=== PATIENT | female | born 1985 | race Caucasian/White ===

== ENCOUNTER 2020-10-07 17:05 | Emergency (ER) | payer OTHER, SELFPAY ==
--- NOTE | ~2020-10-07 | XR_ITS ---
XR chest 2V DATE: 10/07/2020 17:45 INDICATION: Chest tightness TECHNIQUE: PA and lateral views COMPARISON: 06/13/2016 2 view chest FINDINGS: Normal heart size. No hilar or mediastinal enlargement. No pulmonary infiltrate or consol idation, pulmonary vascular congestion or pleural effusion or pneumothorax. Pectus excavatum. There is thoracolumbar scoliosis. IMPRESSION: No active cardiopulmonary disease Reviewed, dictated and finalized at location A.
[2020-10-07 17:16] VITALS: BP 136/89; PULSE 82; RESP 16; TEMP 37.1; O2SAT 100
--- NOTE | 2020-10-07 17:44 | ED.GENADULT ---
HPI - General Adult General Chief complaint: Upper Respiratory Infection Stated complaint: CHEST TIGHTNESS Source: patient and RN notes reviewed Limitations: no limitations History of Present Illness HPI narrative: The patient, non-smoker/nondrinker presents with left breast pain. Patient states she has a shorter, couple day history of crampy left inframammary chest pain that lasts up to a minute. 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 No radiation, fever, cough, calf pain/edema, S OB, sneezing/wheezing, loss of taste/smell. She is on minimal meds as needed buspirone for anxiety. No med/risk factors for HLD, AODM, HTN [on beta tariq for history of anxiety]; and a couple years ago she had noncontributory mammogram and borderline EKG [NSR with IC RBBB,poss LAE] , no CXR. Related Data Home Medications Medication Instructions Recorded Confirmed atenolol 10/07/20 norethindrone-e.estradiol-iron tablet 10/07/20 [Blisovi Fe 03/04 (28)] norethindrone-e.estradiol-iron [Lo tablet 10/07/20 Loestrin Fe] Allergies Allergy/AdvReac Type Severity Reaction Status Date / Time codeine Allergy Unknown Verified 03/24/16 13:49 Review of Systems Review of Systems: Based upon ROS doubt patient has significant risk for cardiac, vascular/thrombotic nor pulmonary causes. General/Constitutional: No weight loss,fever Eyes: N0: Redness,discharge Ears/Nose/Throat: No: Epistaxis,ear discharge Respiratory: Denies: Hemoptysis Gastrointestinal: No Vomiting, Bleeding-rectal Skin: No Lumps, eruption Neurologic: No Focal Weakness,Sz Hematologic: Denies: Petechiae/Purpura Psychiatric: No: Suicida ideationl All Other Systems: Reviewed and Negative [facility] Family History Family History (Updated 03/24/16 @ 13:52 by DOCTOR UNKNOWN) Grandparent Diabetes mellitus Hypertension Malignant neoplasm of prostate Family history of coronary artery disease Mother Diabetes mellitus Father Hypertension Other Family history of cardiovascular disease Social History Social History Smoking status: Never smoker Alcohol intake: current Comments At time of signature, agree with nursing past medical, surgical, social and family history. There is no relevant family history pertinent to the presenting complaint Exam Narrative: General Appearance: Well appearing, No distress EYE: PERRLA, Conjunctiva clear Ears: External ear normal Nose: Normal nose Mouth/Throat: Normal appearing, Normal lips Neck: Supple Respiratory: Airway patent, No respiratory distress, chest wall nontender Cardiovascular: RRR Abdomen: Soft, Non-tender, Musculoskeletal: Full ROM Skin: Warm, Dry Neurological: A&O x3, CN II-X intact Psychiatric: Normal mood, Normal affect Course Course Emergency Course: Films visualized, interpreted by radiologist, agree, normal see report Vital Signs Vital signs: Vital Signs Temperature 98.7 F 10/07/20 17:16 Pulse Rate 82 10/07/20 17:16 Respiratory Rate 16 10/07/20 17:16 Blood Pressure 136/89 10/07/20 17:16 Pulse Oximetry 100 10/07/20 17:16 Temperature 98.7 F 10/07/20 17:16 Pulse Rate 82 10/07/20 17:16 Respiratory Rate 16 10/07/20 17:16 Blood Pressure 136/89 10/07/20 17:16 Pulse Oximetry 100 10/07/20 17:16 Medical Decision Making Vital Signs Vital Signs: Vital Signs Temperature 98.7 F 10/07/20 17:16 Pulse Rate 82 10/07/20 17:16 Respiratory Rate 16 10/07/20 17:16 Blood Pressure 136/89 10/07/20 17:16 Pulse Oximetry 100 10/07/20 17:16 Temperature 98.7 F 10/07/20 17:16 Pulse Rate 82 10/07/20 17:16 Respiratory Rate 16 10/07/20 17:16 Blood Pressure 136/89 10/07/20 17:16 Pulse Oximetry 100 10/07/20 17:16 Lab Data Labs: Lab Results 10/07/20 Range/Units 17:15 POC SARS CoV-2 Ag Negative (Negative)
== END 2020-10-07 18:15 | disposition home or self-care (01) ==
PROVIDERS: Emergency Provider Emergency Medicine; PCP Internal Medicine
DX: N64.4 Mastodynia (principal); Z20.822 Contact with and (suspected) exposure to COVID-19; F41.9 Anxiety disorder, unspecified
CPT/HCPCS: 71046; 87426; 99213; C9803; G0463

== ENCOUNTER → 2021-04-07 09:38 | Outpatient (CLI) | payer OTHER, SELFPAY ==
--- NOTE | ~2021-04-07 | MMUS_ITS ---
EXAMINATION: MM diagnostic parisa BI w aurelio, US breast BI complete HISTORY: Left breast lump, upper outer quadrant TECHNIQUE: ML, MLO and CC full field and spot 3-D tomosynthesis images of both breasts were performed and synthetic 2-D images were generated. Bilateral rotated lateral CC views. CAD analysis was submit anita and interpreted. High resolution complete bilateral breast ultrasound including all 4 quadrants a nd subareolar areas was performed. COMPARISON: 01/27/2016 bilateral diagnostic mammogram BREAST PARENCHYMAL COMPOSITION: The breasts are extremely dense, which lowers the sensitivity of mamm ography. FINDINGS: MAMMOGRAPHIC FINDINGS: No reproducible mass or architectural distortion is evident. No malignant calcification, skin thicken ing or retraction. The dense stroma may obscure masses. For this reason, bilateral complete breast ultrasound examinatio n was performed. ULTRASOUND: There is no evidence of suspicious mass or shadowing of either breast. IMPRESSION: 1. No mammographic evidence of malignancy 2. Routine annual mammographic screening is recommended. BI-RADS Category 1: Negative Negative mammogram and ultrasound examination do not definitively exclude malignancy. Further evaluat ion of any suspicious palpable abnormality may be indicated as clinically appropriate. Reviewed, dictated and finalized at location A. STANT HEALTH EDUCATOR IMPRESSION: 1. No mammographic evidence of malignancy 2. Routine annual mammographic screening is recommended. BI-RADS Category 1: Negative Negative mammogram and ultrasound examination do not definitively exclude malig anamaria. Further evaluation of any suspicious palpable abnormality may be indicat ed as clinically appropriate.
== END ==
PROVIDERS: Visit Provider Nurse Practitioner
DX: N63.20 Unspecified lump in the left breast, unspecified quadrant (principal)
CPT/HCPCS: 76641; 77062; 77066; G0279

== ENCOUNTER 2021-08-01 09:11 | Emergency (ER) | payer OTHER, SELFPAY ==
--- NOTE | ~2021-08-01 | XR_ITS ---
XR finger 2nd RT min 2V DATE: 08/01/2021 09:26 INDICATION: Pop/pain while scrubbing. Flexion deformity at the DIP joint. TECHNIQUE: 4 views of second digit COMPARISON: None FINDINGS: No fracture or dislocation, periosteal reaction or bone destruction, radiopaque soft tissue foreign body or subcutaneous emphysema. Joint spaces are preserved. IMPRESSION: No fracture or dislocation Reviewed, dictated and finalized at location A. IMPRESSION: No fracture or dislocation
--- NOTE | 2021-08-01 09:14 | ED.UPPEXIN ---
HPI - Extremity Injury (Upper) General Chief Complaint: Extremity Injury, Upper Stated Complaint: Right hand finger injury Time Seen by Provider: 08/01/21 09:14 Source: patient and RN notes reviewed History of Present Illness HPI narrative: Patient is a 36-year-old female who presents the urgent care with complaints of right index finger pain. Patient states that on Monday she was scrubbing her karma after her child spilled ice cream and her the tip of her finger snap. Patient states she is unable to straighten the tip. Patient has been taking Advil for the pain. States it is not painful to touch, only to squeeze. Patient is right-hand dominant. No other acute complaints. No acute distress noted. Patient read the plan of care. Some parts of this dictation were generated by voice recognition software and may contain typographical and/or grammatical inaccuracies. Related Data Home Medications Medication Instructions Recorded Confirmed atenolol 50 mg tablet 10/07/20 norethindrone 1 mg-ethinyl tablet 10/07/20 estradiol 20 mcg (21)-iron 75 mg (7) tablet (Blisovi Fe 03/04 (28)) escitalopram oxalate 10 mg tablet tablet 08/01/21 Allergies Allergy/AdvReac Type Severity Reaction Status Date / Time codeine Allergy Unknown Unknown Verified 08/01/21 09:16 Review of Systems Review of Systems: CONSTITUTIONAL: Denies fever, chills, or sweats. EYES: Denies visual changes, redness, or discharge. ENT: Denies rhinorrhea, congestion, sore throat, or otalgia. CARDIOVASCULAR: Denies chest pain, palpitations, or edema. RESPIRATORY: Denies cough or dyspnea. GASTROINTESTINAL: Denies abdominal pain, nausea, vomiting, or diarrhea. GENITOURINARY: Denies dysuria or hematuria. SKIN: Denies rash or itching. MUSCULOSKELETAL: Reports of right index finger pain NEUROLOGIC: Denies headache, numbness, or weakness. All other systems reviewed are negative, except as documented in HPI. [facility] Family History Family History (Updated 03/24/16 @ 13:52 by DOCTOR UNKNOWN) Grandparent Diabetes mellitus Hypertension Malignant neoplasm of prostate Family history of coronary artery disease Mother Diabetes mellitus Father Hypertension Other Family history of cardiovascular disease Social History Social History Smoking status: Never smoker Alcohol intake: current Comments At the time of my signature, I reviewed and agree with the nursing past medical, surgical, social, and family history. There is no relevant family history pertinent to the patient complaint. Exam Narrative: GENERAL: This is a well-nourished, well-developed patient, in no apparent distress. HEAD: normocephalic, atraumatic. EYES: PERRL. Sclera clear/white. Vision is grossly intact. EARS: External ears normal NOSE: External nose normal with no obvious nasal discharge, nares without redness, no rhinorrhea. THROAT: Mucous membranes moist NECK: Neck supple CARDIOVASCULAR: Regular rate and rhythm without murmurs, gallops, or rubs. RESPIRATORY: Clear to auscultation. Breath sounds equal bilaterally. No wheezes, rales, or rhonchi. SKIN: warm, intact with no suspicious lesions or rash, good texture and turgor. NEURO: awake, alert, and oriented to person, place and time. There were no obvious focal neurologic abnormalities. EXTREMITIES: Obvious tendon rupture to the DIP of the right index finger, with mild surrounding edema. Range of motion right upper extremity within normal limits with positive strong right radial pulse and capillary refill less than 2 seconds. Course Course Level of Care: Express Care Visit Vital Signs Vital signs: Vital Signs Temperature 99.1 F 08/01/21 09:16 Pulse Rate 63 08/01/21 09:16 Respiratory Rate 16 08/01/21 09:16 Blood Pressure 114/77 08/01/21 09:16 Pulse Oximetry 100 08/01/21 09:16 Oxygen Delivery Room Air 08/01/21 09:16 Temperature 99.1 F 08/01/21 09:16 Pulse Rate 63 08/01/21 09:16 Respiratory
[2021-08-01 09:16] VITALS: BP 114/77; PULSE 63; RESP 16; TEMP 37.3; O2SAT 100
== END 2021-08-01 09:48 | disposition home or self-care (01) ==
PROVIDERS: Emergency Provider Nurse Practitioner Family; PCP Family Medicine
DX: S69.92XA Unspecified injury of left wrist, hand and finger(s), initial encounter (principal); X50.3XXA Overexertion from repetitive movements, initial encounter; F41.9 Anxiety disorder, unspecified
CPT/HCPCS: 29130; 73140; 99213; G0463

== ENCOUNTER 2023-10-05 13:27 | Outpatient (CLI) | payer OTHER, SELFPAY ==
--- NOTE | ~2023-10-05 | MM_ITS ---
EXAMINATION: MM screening parisa BI w aurelio HISTORY: Screening TECHNIQUE: Craniocaudal and mediolateral oblique 3-D tomosynthesis images were obtained and synthetic 2-D images were generated. CAD analysis was submitted and interpreted. COMPARISON: Comparison to multiple prior studies sequentially, with oldest reviewed study dated 01/13. BREAST PARENCHYMAL COMPOSITION: Dense: The breasts are heterogeneously dense, which may obscure small masses FINDINGS: There is no evidence of suspicious mass, calcification, or architectural distortion to sugg est malignancy in either breast. There has been no suspicious interval change. IMPRESSION: 1. No mammographic evidence of malignancy. 2. Recommend routine screening mammography in one year. BI-RADS Category 1: Negative Reviewed, dictated and finalized at location B.
== END 2023-10-05 13:28 ==
PROVIDERS: PCP Obstetrics & Gynecology Gynecology; Visit Provider Obstetrics & Gynecology Gynecology
DX: Z12.31 Encounter for screening mammogram for malignant neoplasm of breast (principal)
CPT/HCPCS: 77063; 77067

== ENCOUNTER 2024-08-25 09:39 | Emergency (ER) | payer OTHER, SELFPAY ==
--- NOTE | ~2024-08-25 | CT_ITS ---
Non-contrast Head CT History: Head injury, headache Technique: Axial non-contrast imaging of the brain was performed. Dose reduction technique was used on this scan by utilizing automated exposure control and iterative reconstruction technique. The dose -length product (DLP) was 605.33 mGy-cm. Findings: There is no evidence of intracranial hemorrhage, mass lesion, or acute infarct. Brain par enchyma appears normal. The ventricles and subarachnoid spaces are normal in size. The calvarium ap pears normal. The visualized paranasal sinuses and mastoid air cells are clear. Impression: No significant abnormality seen. Reviewed, dictated and finalized at location . Impression: No significant abnormality seen.
[2024-08-25 09:40] VITALS: BP 154/95; PULSE 89; RESP 16; TEMP 37; O2SAT 94
--- OUTSIDE RECORDS SUMMARY | 2024-08-25 09:41 | XMS_ITS | Clinical Summary ---
Author Organization [facility] Address [address] [place] [address] Phone Care Team Providers Care Locksmith Name Role Phone Unavailable Primary Care Provider Unavailabl e Social History Tobacco Use Types Packs/Day Years Used Date Smoking Tobacco: Never Assessed Comments Unknown Sex and Gender Information Value Date Recorded Sex Assigned at Not on file Legal Sex Female 4:46 PM CDT Gender Identity Not on file Sexual Orientation Not on file Plan of Treatment Health Maintenance Due Date Last Done Comments DTAP/TDAP/TD VACCINES (1 - Tdap) 01/17/2003 HEPATITIS B VACCINES (1 of 3 - 19+ 3-dose series) 01/17/2003 HPV/Cotest (21-29) 01/17/2005 CERVICAL CANCER SCREENING 01/17/2014 HPV/Cotest (30-65) 01/17/2014 PAP SMEAR 01/17/2014 BREAST CANCER SCREENING 2024 INFLUENZA VACCINE (#1) 2024 HPV VACCINES Aged Out No longer eligi ble based on patient's age to complete this topic Insurance [facility] [id number]
--- OUTSIDE RECORDS SUMMARY | 2024-08-25 09:41 | XMS_ITS | Referral Summary ---
Author Organization [facility] Address [address] [place] [address] Care Team Providers Care Optical Goods Worker Name Role Phone Shawn Lugo MD Primary Care Provider [phone] Kamala Gordon MD Unavailable [phone] Allergies Active Allergy Reactions Criticality Noted Date Comments Codeine Rash,Redness,Itching Low 08/15/2013 Reaction: rash, redness, Patient tolerated hydromorphone (Diluadid) with no adverse effect August 2013 Medications multivit-mineral s/folic acid (MULTIVITAMIN GUMMIES ORAL) Take by mouth Active Blisovi Fe 03/04, 28, 1 mg-20 mcg (21)/75 mg (7) per tablet 08/27/2021 Active escitalopram (LEXAPRO) 10 mg tabletIndication s:Generalized anxiety disorder TAKE 1 TABLET DAILY 90 tablet 3 02/13/2024 Active Active Problems Problem Noted Date Diagnosed Date Well adult exam 12/12/2020 Assessment & Plan (09/14/2023 8:20 AM CDT): A(n) yearly well adult visit has been performed today. Kwesi Plata is not up to date on screening tests. He is in need of hep B, C and Cholesterol screening. She is not up to date on needed preventative vaccinations; She is in need of Tdap/Td. We discussed healthy lifestyle habits, educational material has been given. Medications reviewed, changes documented as per the medical record and discussed with patient along with risks vs benefits. Return in 1 year Assessment & Plan (09/13/2022 8:48 AM CDT): A(n) yearly well adult visit has been performed today. Kwesi Plata is up to date on screening tests. She is in need of None- no screening indicated at this time. She is not up to date on needed preventative vaccinations. We discussed healthy lifestyle habits, educational material has been given. Medications reviewed, changes documented as per the medical record and discussed with patient along with risks vs benefits. Return in 1 year Assessment & Plan (12/12/2020 7:19 PM CDT): A visit to establish care has been performed today. Kwesi Plata is up to date on screening tests. She is in need of None- no screening indicated at this time- these have been ordered. She is up to date on needed preventative vaccinations. Generalized anxiety disorder 12/10/2020 Occipital mass 04/20/2018 Assessment & Plan (04/20/2018 10:12 AM BUSINESS TAXES SPECIALIST): Lymphadenopathy verses cyst. Advised Pt does not appear to have any correlation with her neck strain unless a ganglion cyst of some sort. In moving forward I did advise her we can check a CBC, D/T her concerns of it to be cancer, and consultation to ENT for further evaluation to which they can make a decision to determine need for ultrasonography, antibiotics, etc. Preventative health care 08/29/2016 , twins, antepartum 08/15/2013 Overview (12/10/2020): Last Assessment & Plan: Baby A: AEDF and Baby B: 2VC Plan for C/S Palpitations 12/19/2011 Overview (05/18/2016): Palpitations Essential hypertension 12/19/2011 Overview (05/20/2016): HTN (hypertension) Resolved Problems Problem Noted Date Diagnosed Date Resolved Date Lymph node enlargement 04/25/201808/31 Assessment & Plan (04/25/2018 2:09 PM CDT): Observation if it grows to twice its current size please call office Warm compresses to left neck and shoulder for 15 minutes at a time Neck strain 04/20/2018 08/31/2018 Assessment & Plan (04/20/2018 10:12 AM BUSINESS TAXES SPECIALIST): Recommended naproxen 1 tab with food twice daily for the next 1-2 weeks, Zanaflex caution of sedation p.r.n., application of heat stretching exercises, C-spine x- ray ordered considering longevity of neck pain which will follow-up in regard to. I did discuss physical therapy she declined at this time I gave her instructions she was exercises to implemented home. RTC in 2 weeks with little improvement sx Iron deficiency anemia eliezer latham to inadequate dietary iron intake 08/29/2016 8 Immunizations Immunization Administration Dates Next Due Influenza, Quadrivalent, Freda l Culture-based MDCK, Preservative Free, Antibiotic Free, Intramuscular 11/16/2019 Influenza, Quadrivalent, Spl it, Intramuscular 01/25/2019 Influenza, Quadrivalent, Spl it, Preservative Free, Intramuscular 12/10/2020,01/25/2019 Influenza, Split 12/31/2009 Influenza, Unspecified 09/13/2022(Deferr ed: Patient Refused),02/13/2022(Deferred: Patient Refused),02/13/2021(Deferred: Patient Refused) MMR 09/19/2009 Moderna SARS-CoV-2 Monovalen t Vaccination (12+ YRS) 02/25/2021,05/04/2020,04/02/2020 Tdap 09/14/2023,07/15/2013,09/14/2009 Social History Tobacco Use Types Packs/Day Years Used Date Smoking Tobacco: Never Cigarettes Smokeless Tobacco: Never Tobacco Cessation:Counseling Given: Not Answered Alcohol Use Standard Drinks/Week Comments Yes 0 (1 standard drink = 0.6 oz pur e alcohol) occasionally AUDIT-C Answer Date Recorded Q1: How often do you have a drink containing alc ohol? Monthly or less 12/10/2020 Q2: How many drinks containi ng alcohol do you have on a typical day when you are drinking? 1 or 2 12/10/2020 Q3: How often do you have si x or more drinks on one occasion? Never 12/10/2020 PHQ-2 Answer Date Recorded PHQ-2 Total Score (If total score is 3 or more points, staff should administer the PHQ-9) 0 09/14/2023 Exercise Vital Sign Answer Date Recorde d On average, how many days pe r week do you engage in moderate to strenuous exercise (like a brisk walk)? 0 days Minutes of Exercise per Session Not on file 12/10/2020 Education Answer Date Recorded What is the highest level of school you have completed or the highest degree you have received? 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 on file Not on file Last Filed Vital Signs Vital Sign Reading Time Taken Comments Blood Pressure 100/60 09/14/2023 8:11 AM CDT Pulse 71 09/14/2023 8:11 AM CDT Temperature 36.2 C (97.1 F) 09/14/2023 8:11 AM CDT Respiratory Rate 14 09/14/2023 8:11 AM CDT Oxygen Saturation 98% 09/14/2023 8:11 AM CDT Inhaled Oxygen Concentration - - Weight 79.8 kg (176 lb) 10/12/2023 4:02 PM CDT Height 162.6 cm (5' 4) 10/12/2023 4:02 PM CDT Body Mass Index 30.21 10/12/2023 4:02 PM CDT Plan of Treatment Not on file Procedures Procedure Name Priority Date/Time Associated Diagnosis Comments HEPATITIS C ANTIBODY Routine 09/14/2023 8:34 AM CDT Need for hepatitis C screening test HM PAP SMEAR WITH HPV Routine 02/04/2020 from Last 3 Months or Most Recently Relevant to Health Maintenance Results * Hepatitis C antibody Blood (09/14/2023 8:34 AM CDT) Hep C Ab Nonreactive Nonreactive Comment: Interpretive Data Nonreactive: Antibodies to HCV not detected. Does NOT exclude the possibility of recent exposure to HCV. Equivocal: Equivocal for HCV antibodies. Supplemental molecular testing will be automatically performed to determine infection status in accordance with current CDC screening recommendations. Reactive: Positive for HCV antibodies. This may represent current or past HCV infection. Supplemental molecular testing will be automatically performed to determine current infection status in accordance with current CDC screening recommendations. Interpretive data was last revised on 2019. Blood 09/14/2023 8:34 AM CDT 09/14/2023 3:22 PM CDT Shawn Lugo MD LAB MICROBIOLOGY - GENERAL ORDERABLES Final Result Performing Organization Address City/State/ZIP [place] Phone Number [place] [phone] [facility] Department of Laboratories [place], [place] [id number] * PAP SMEAR WITH HPV (02/04/2020) Historical Provider HEALTH MAINTENANCE Final Result from Last 3 Months or Most Recently Relevant to Health Maintenance Insurance [facility] CHO[facility] PLUS [facility] PLUS [facility] PLUS Care Teams Optical Goods Worker Relationship Specialty Start Date End Date Shawn Lugo MD PCP - General Family Medicine 12/10/20 Kamala Gordon MD [address] [address] Referring Physician Gynecology 09/13/21
--- OUTSIDE RECORDS SUMMARY | 2024-08-25 09:41 | XMS_ITS | Clinical Summary ---
Author Organization [facility] Address [address] [place] [address] Care Team Providers Care Inspector Golf Ball Name Role Phone Shawn Lugo MD Primary Care Provider [phone] Kamala Gordon MD Unavailable [phone] Allergies Active Allergy Reactions Criticality Noted Date [...] 04/20/2018 Assessment & Plan (04/20/2018 10:12 AM MEDICAL OFFICE ADMINISTRATOR): Lymphadenopathy verses cyst. 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 Hx Other Medical r foot fx, surg dav Hypertension Generalized anxiety disorder 12/10/2020 Kidney stone Family History Medical History Relation Name Comments Hypertension Father Seven Chambers Hypertension ; Other Father Seven Chambers Alive and we ll; Diabetes Maternal Grandfather Oskar Ramírez Heart attack Maternal Grandfather Oskar Ramírez Myocard ial infarction; Alzheimer's disease Maternal Grandmother Natalia Ramírez Hypertension Maternal Grandmother Natalia Ramírez Hypert ension; Diabetes Mother Lorrei Chambers Diabetes destiny itus; Other Mother Lorrie Chambers Alive and wel l; Colon cancer Paternal Grandfather Cancer, colon; Hypertension Paternal Grandmother Nati Winters Relation Name Status Comments Father Seven Chambers Alive Maternal Grandfather Oskar Ramírez Alive Maternal Grandmother Natalia Ramírez Alive Mother Lorrie Chambers Alive Paternal Grandfather Alive Paternal Grandmother Nati Chambers Social History Tobacco Use Types Packs/Day Years [...] on file Legal Sex Female 12:40 PM MEDICAL OFFICE ADMINISTRATOR Gender Identity Female 12/09/2020 8:32 PM CDT Sexual Orientation Straight 12/09/2020 8: 32 PM CDT 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 on file Not on file Obstetrics History Last Filed Vital Signs Vital Sign Reading [...] 10/12/2023 4:02 PM CDT Plan of Treatment Health Maintenance Due Date Last Done Comments Breast Cancer Screening-Mammogram 1984 Covid-19 Vaccine ( season) 2023 02/25/2021, 05/04/2020, 04/02/2020 Depression Screening 09/13/2024 09/14/2023, 09/13/2022, 09/13/2021, Additional history exists Regular Well Visit/Exam 18-64 09/13/2024 09/14/2023, 09/13/2022, 09/13/2021, Additional history exists Influenza Vaccine (Season Ended) 2024 12/10/2020, 11/16/2019, 01/25/2019, Additional history exists Cervical Cancer Screening 02/12/2025 02/04/2020 Po stponed from 02/03/2021 (Insurance / Financial) DTaP/Tdap/Td Vaccine (4 - Td or Tdap) 09/13/2033 09/14/2023, 07/15/2013, 09/14/2009 Hepatitis B Screening Completed 09/14/2023 Hepatitis C Screening Completed 09/14/2023 HPV Vaccines Aged Out No longer eligi ble based on patient's age to complete this topic Pneumococcal vaccine <65 Aged Out No longer eligible based on patient's age to complete this topic Varicella Vaccines Discontinued Procedures Procedure Name Priority Date/Time Associated Diagnosis [...] GENERAL ORDERABLES Final Result Performing Organization Address City/State/[facility] Phone Number HALIMA [address] Department [place] [address] * PAP SMEAR WITH HPV (02/04/2020) Rasheed Provider HEALTH MAINTENANCE Final Result from Last 3 Months or Most Recently Relevant to Health Maintenance Insurance [facility] PL[facility] Care Teams Inspector Golf Ball Relationship Specialty Start Date End Date Shawn Lugo MD PCP - General Family Medicine 12/10/20 Kamala Gordon MD [address] [place] [address] Referring Physician Gynecology 09/13/21
--- OUTSIDE RECORDS SUMMARY | 2024-08-25 09:41 | XMS_ITS | Clinical Summary ---
Author Organization [facility] Address [address] [place] [address] Care Team Providers Care Clerical Office Worker Name Role Phone Alexis Hopper MD Primary Care Provider Source Comments [facility],non-owned Affiliates and Associated Physician Practices is amultiple site organization consisting of ambulatory clinics and hospital sitesin [place], [place], [place] and [place]. This disclosure is being madepursuant to the Care Everywhere program and may not contain all information available regarding this patient. Last updated 17.[facility] Allergies Active Allergy Reactions Criticality Noted Date Comments Codeine Itching 08/15/2013 Patient tolerated hydromorphone (Diluadid) with no adverse effect August 2013 Medications * Be aware that medications may not be up to date on this document. Alwaysverify current medications with the patient. Vit-Fe Fumarate-FA ( VITAMIN) 28-0.8 MG tablet Take 1 Tab by mouth once daily Reported on 01/25/2016 Active calcium carbonate (CALTRATE) 600 MG tablet Take 1 Tab by mouth daily with food Reported on 01/25/2016 Active NIFEdipine CR 24hr (ADALAT CC) 30 MG tabletIndicatio ns:Hypertension Take 30 mg by mouth 2 times daily Reported on 01/25/2016 Reasons: High Blood Pressure Active labetalol (NORMODYNE; TRANDATE) 200 MG tablet Take 1 Tab by mouth 2 times daily. 180 Tab 3 4 Active Additional Information Patient not taking.Reported on 01/25/2016 oxyCODONE-aceta minophen (PERCOCET) 5-325 MG tablet Take 1 Tab by mouth every 6 hours as needed. 20 Tab 0 4 Active Additional Information Patient not taking.Reported on 01/25/2016 ibuprofen (MOTRIN) 600 MG tablet Take 1 Tab by mouth every 6 hours as needed for Pain. 60 Tab 1 4 Active docusate sodium 100 MG CAPS Take 100 mg by mouth 2 times daily as needed for Constipation. 60 Cap 1 4 Active Additional Information Patient not taking.Reported on 01/25/2016 labetalol (NORMODYNE; TRANDATE) 100 MG tabletIndicatio ns:Hypertension Take 2 Tabs by mouth 2 times daily. Indications: High Blood Pressure 60 Tab 1 4 Active Additional Information Patient not taking.Reported on 01/25/2016 ATENOLOL PO Active Active Problems Problem Noted Date Diagnosed Date , twins, antepartum 08/15/2013 Assessment & Plan (08/15/2013 5:02 PM CDT): Baby A: AEDF and Baby B: 2VC Plan for C/S Social History Tobacco Use Types Packs/Day Years Used Date Smoking Tobacco: Never Smokeless Tobacco: Never Alcohol Use Standard Drinks/Week Comments No 0 (1 standard drink = 0.6 oz pur e alcohol) Comments No Sex and Gender Information Value Date Recorded Sex Assigned at Not on file Legal Sex Female 2:15 PM CDT Gender Identity Not on file Sexual Orientation Not on file Last Filed Vital Signs Vital Sign Reading Time Taken Comments Blood Pressure 118/76 01/25/2016 4:03 PM HANDTOOLS REPAIRER Pulse 82 01/25/2016 4:03 PM HANDTOOLS REPAIRER Temperature 37.3 C (99.1 F) 01/25/2016 4:03 PM HANDTOOLS REPAIRER Respiratory Rate 16 01/25/2016 4:03 PM HANDTOOLS REPAIRER Oxygen Saturation 98% 01/25/2016 4:03 PM HANDTOOLS REPAIRER Inhaled Oxygen Concentration - - Weight 68 kg (150 lb) 01/25/2016 4:03 PM HANDTOOLS REPAIRER Height 162.6 cm (5' 4) 01/25/2016 4:03 PM HANDTOOLS REPAIRER Body Mass Index 25.75 01/25/2016 4:03 PM HANDTOOLS REPAIRER Plan of Treatment Health Maintenance Due Date Last Done Comments LIPID TESTING 1984 MAMMOGRAM 1984 HIV SCREENING 01/17/1999 HEPATITIS C SCREENING 01/13/2002 DTAP/TDAP/TD VACCINES (1 - Tdap) 01/17/2003 HEPATITIS B VACCINE (1 of 3 - 19+ 3-dose series) 01/17/2003 HPV VACCINE (1 - 3-dose SCDM series) 01/17/2011 COVID-19 VACCINE (1 - 2023-2 5 season) 2023 DEPRESSION SCREENING 02/14/2024 INFLUENZA VACCINE (#1) 2024 ZOSTER VACCINE (1 of 2) 01/17/2034 HIB VACCINE Aged Out No longer eligi ble based on patient's age to complete this topic MENINGOCOCCAL (Group B) VACC INE SHARED DECISION-MAKING Aged Out No longer eligibl e based on patient's age to complete this topic MENINGOCOCCAL GROUPS A/C/Y/W VACCINE Aged Out No longer eligible b ased on patient's age to complete this topic PNEUMOCOCCAL VACCINE Aged Out No long er eligible based on patient's age to complete this topic Insurance [facility] [place] [place] [address] Advance Directives * Full Code (Latest Code Status on File) Date Activated Date Inactivated Comments 08/15/2013 3:59 PM 08/19/2013 1:05 PM Care Teams Clerical Office Worker Relationship Specialty Start Date End Date Alexis Hopper MD [address] [place] [id number] PCP - General Internal Medicine 08/15/13
--- OUTSIDE RECORDS SUMMARY | 2024-08-25 09:41 | XMS_ITS | Continuity of Care Document ---
Author Organization [facility] Address [address] [place] [address] Phone Care Team Providers Care Automobile Rental Agent Name Role Phone Unavailable Unavailable Unavailable Advance Directives Directive Yes / No Effective Date File Name No Information Encounters Encounter Description Practice Location Reason(s) For Visit Diagnoses Date Provider Providers Copied on Encounter [facility], [address], [place], [place], [id number], [place] tel:[phone] [facility] No Information No Information Referring Provider: OTILIA Sifuentes, [address], [place], [address]. tel:[phone] Family History Family Member Type Diagnosis Age At Onset No Information Payers Payer name Insurance type Covered libertarian ID [facility]isonal([id number] [id number] Social History Type Description Quantity Date Captured Comments Sex Female Smoking Status No Information Chief Complaint And Reason For Visit No Information History Of Present Illness Encounter Date Complaint History Of Prese nt Illness No Information Instructions Date Instruction Additional Infor mation No Information Assessments Type Assessment Date No Information
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
[2024-08-25 11:00] VITALS: BP 147/96; PULSE 90; RESP 16; O2SAT 97
--- OUTSIDE RECORDS SUMMARY | 2024-08-25 11:05 | XMS_ITS | Continuity of Care Document ---
Author Organization [facility] Address [address] [place] [address] Phone Care Team Providers Care Medical Records Auditor Name Role Phone Unavailable Unavailable Unavailable Advance Directives Directive Yes / No Effective Date File Name No Information Encounters Encounter Description Practice Location Reason(s) For Visit Diagnoses Date Provider Providers Copied on Encounter [facility], [address], [place], [place], [id number], [place] tel:[phone] [facility] No Information No Information Referring Provider: OTILIA Sifuentes, [address], [place], [address]. tel:[phone] Family History Family Member Type Diagnosis Age At Onset No Information Payers Payer name Insurance type Covered constitution party ID [facility]iza tisonal([id number] CI [id number] Social History Type Description Quantity Date Captured Comments Sex Female Smoking Status No Information Chief Complaint And Reason For Visit No Information History Of Present Illness Encounter Date Complaint History Of Prese nt Illness No Information Instructions Date Instruction Additional Infor mation No Information Assessments Type Assessment Date No Information
--- OUTSIDE RECORDS SUMMARY | 2024-08-25 11:05 | XMS_ITS | Clinical Summary ---
Author Organization [facility] Address [address] [place] [phone] Phone Care Team Providers Care Director Internal Audit Name Role Phone Unavailable Primary Care Provider [...] patient's age to complete this topic Insurance [facility] [id number]
--- OUTSIDE RECORDS SUMMARY | 2024-08-25 11:06 | XMS_ITS | Clinical Summary ---
Author Organization [facility] Address [address] [place] [place] [address] Care Team Providers Care Nurse Emergency Room Name Role Phone Alexis Hopper MD Primary Care Provider Source Comments [facility],non-owned Affiliates and Associated Physician Practices is amultiple site organization consisting of ambulatory clinics and hospital sitesin [place], [place], [place] and [place]. This disclosure is being madepursuant to the Care Everywhere program and may not contain all information available regarding this patient. Last updated 17.[facility] Allergies Active Allergy Reactions Criticality Noted Date [...] Comments Blood Pressure 118/76 01/25/2016 4:03 PM RULING MACHINE FEEDER Pulse 82 01/25/2016 4:03 PM RULING MACHINE FEEDER Temperature 37.3 C (99.1 F) 01/25/2016 4:03 PM RULING MACHINE FEEDER Respiratory Rate 16 01/25/2016 4:03 PM RULING MACHINE FEEDER Oxygen Saturation 98% 01/25/2016 4:03 PM RULING MACHINE FEEDER Inhaled Oxygen Concentration - - Weight 68 kg (150 lb) 01/25/2016 4:03 PM RULING MACHINE FEEDER Height 162.6 cm (5' 4) 01/25/2016 4:03 PM RULING MACHINE FEEDER Body Mass Index 25.75 01/25/2016 4:03 PM RULING MACHINE FEEDER Plan of Treatment Health Maintenance Due Date [...] patient's age to complete this topic Insurance [facility] Advance Directives * Full Code (Latest Code Status on File) Date Activated Date Inactivated Comments 08/15/2013 3:59 PM 08/19/2013 1:05 PM Care Teams Nurse Emergency Room Relationship Specialty Start Date End Date Alexis Hopper MD [address] [place] [phone] PCP - General Internal Medicine 08/15/13
--- OUTSIDE RECORDS SUMMARY | 2024-08-25 11:06 | XMS_ITS | Clinical Summary ---
Author Organization [facility] Address [address] [place] [address] Care Team Providers Care Material Checker Name Role Phone Shawn Lugo MD Primary Care Provider [phone] Kamala Gordon MD Unavailable [phone] Allergies Active Allergy Reactions Criticality Noted Date [...] 04/20/2018 Assessment & Plan (04/20/2018 10:12 AM AGRICULTURE INSPECTOR): Lymphadenopathy verses cyst. 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 Hx Other Medical r foot fx, surg [...] Grandmother Natalia Ramírez Hypert ension; Diabetes Mother Lorrie Chambers Diabetes destiny itus; Other Mother Lorrie [...] on file Legal Sex Female 12:40 PM AGRICULTURE INSPECTOR Gender Identity Female 12/09/2020 8:32 PM CDT [...] GENERAL ORDERABLES Final Result Performing Organization Address City/State/[facility] Phone Number HALIMA [address] [address] Department [place] [address] * PAP SMEAR WITH HPV (02/04/2020) Rasheed Provider HEALTH MAINTENANCE Final Result from Last 3 Months or Most Recently Relevant to Health Maintenance Insurance [facility] PLUS [facility] PLUS Care Teams Material Checker Relationship Specialty Start Date End Date Shawn Lugo MD PCP - General Family Medicine 12/10/20 Kamala Gordon MD [address] [place] [address] Referring Physician Gynecology 09/13/21
--- OUTSIDE RECORDS SUMMARY | 2024-08-25 11:06 | XMS_ITS | Referral Summary ---
Author Organization [facility] Address [address] [place] [address] Care Team Providers Care Sheet Manager Name Role Phone Shawn Lugo MD Primary Care Provider [phone] Kamala Gordon MD Unavailable [phone] Allergies Active Allergy Reactions Criticality Noted Date [...] 04/20/2018 Assessment & Plan (04/20/2018 10:12 AM SHIP'S PILOT): Lymphadenopathy verses cyst. Advised Pt does not [...] 08/31/2018 Assessment & Plan (04/20/2018 10:12 AM SHIP'S PILOT): Recommended naproxen 1 tab with food twice [...] on file Legal Sex Female 12:40 PM SHIP'S PILOT Gender Identity Female 12/09/2020 8:32 PM CDT [...] Final Result Performing Organization Address City/State/[place] Phone Number HALIMA [address] [facility] Department of Laboratories [place], [place] [id number] * PAP SMEAR WITH HPV (02/04/2020) Historical Provider HEALTH MAINTENANCE Final Result from Last 3 Months or Most Recently Relevant to Health Maintenance Insurance [facility] PLUS [facility] PLUS [facility] PLUS Care Teams Sheet Manager Relationship Specialty Start Date End Date Shawn Lugo MD PCP - General Family Medicine 12/10/20 Kamala Gordon MD [address] [place] [address] Referring Physician Gynecology 09/13/21
== END 2024-08-25 11:05 | disposition home or self-care (01) ==
LOC: CHSED 11:04
PROVIDERS: Emergency Provider Emergency Medicine; PCP Family Medicine
DX: S06.0X0A Concussion without loss of consciousness, initial encounter (principal); W21.03XA Struck by baseball, initial encounter; Y93.64 Activity, baseball
CPT/HCPCS: 70450; 99284

== ENCOUNTER 2024-10-08 16:14 | Outpatient (CLI) | payer OTHER, SELFPAY ==
--- NOTE | ~2024-10-08 | MM_ITS ---
EXAMINATION: screening [facility] BI w aurelio INDICATION: Asymptomatic, referred for screening mammogram COMPARISON: 10/05/2023 through 01/27/2016 TECHNIQUE: Digital Breast Tomosynthesis CC, MLO views of Both breasts were obtained with computer-aided detection to assist in interpretation of the study. FINDINGS: The breasts are heterogeneously dense, which may obscure small masses. There is a superficial mass in the superior lateral left breast at anterior third. Elsewhere, there are no mammographic features of malignancy. IMPRESSION: 1. Left breast Mass. 2. No evidence of malignancy in the Right breast. RECOMMENDATION: Left breast ultrasound BI-RADS Category 0: Incomplete: Needs additional imaging evaluation. Reviewed, dictated and finalized at location B.
== END 2024-10-08 16:15 | disposition home or self-care (01) ==
LOC: MICIMG 16:15
PROVIDERS: PCP Obstetrics & Gynecology Gynecology; Visit Provider Obstetrics & Gynecology Gynecology
DX: Z12.31 Encounter for screening mammogram for malignant neoplasm of breast (principal)
CPT/HCPCS: 77063; 77067

== ENCOUNTER 2024-10-22 08:32 | Outpatient (CLI) | payer OTHER, SELFPAY ==
--- NOTE | ~2024-10-22 | MMUS_ITS ---
EXAMINATION: MM diagnostic parisa LT w aurelio, US breast LT limited INDICATION: 39-year old female; BI-RADS 0, callback to evaluate left breast mass. COMPARISON: 10/08/2024 TECHNIQUE: Digital breast tomosynthesis True lateral and spot compression of the LEFT breast were obtained with computer-aided detection to assist in interpretation of the study. MAMMOGRAM FINDINGS: The breasts are heterogeneously dense, which may obscure small masses. A superficial circumscribed mass persists in the upper outer left breast. LEFT BREAST ULTRASOUND FINDINGS: Targeted evaluation of the upper outer quadrant was completed. At 1:00, 1 cm from the nipple there is an irregular shaped hypoechoic mass, which correlates to the mammographic finding. IMPRESSION: Suspicious left breast mass at 1:00 location. Recommend biopsy under ultrasound guidance. RECOMMENDATION: Ultrasound-guided core biopsy of left breast mass at 1:00. BI-RADS 4, SUSPICIOUS Reviewed, dictated and finalized at location B. IMPRESSION: Suspicious left breast mass at 1:00 location. Recommend biopsy under ultrasound guidance. RECOMMENDATION: Ultrasound-guided core biopsy of left breast mass at 1:00. BI-RADS 4, SUSPICIOUS
--- OUTSIDE RECORDS SUMMARY | 2024-10-22 09:01 | XMS_ITS | Clinical Summary ---
Author Organization [facility] Address [address] [place] [address] Care Team Providers Care Roll Edge Machine Operator Name Role Phone Alexis Hopper MD Primary Care Provider Source Comments [facility],non-owned Affiliates and Associated Physician Practices is amultiple site organization consisting of ambulatory clinics and hospital sitesin [place], [place], [place] and [place]. This disclosure is being madepursuant to the Care Everywhere program and may not contain all information available regarding this patient. Last updated 17.[facility] Allergies Active Allergy Reactions Criticality Noted Date [...] Comments Blood Pressure 118/76 01/25/2016 4:03 PM SALES TRAINER Pulse 82 01/25/2016 4:03 PM SALES TRAINER Temperature 37.3 C (99.1 F) 01/25/2016 4:03 PM SALES TRAINER Respiratory Rate 16 01/25/2016 4:03 PM SALES TRAINER Oxygen Saturation 98% 01/25/2016 4:03 PM SALES TRAINER Inhaled Oxygen Concentration - - Weight 68 kg (150 lb) 01/25/2016 4:03 PM SALES TRAINER Height 162.6 cm (5' 4) 01/25/2016 4:03 PM SALES TRAINER Body Mass Index 25.75 01/25/2016 4:03 PM SALES TRAINER Plan of Treatment Health Maintenance Due Date Last Done Comments LIPID TESTING 1984 MAMMOGRAM 1984 HIV SCREENING 01/17/1999 HEPATITIS C SCREENING 01/13/2002 DTAP/TDAP/TD VACCINES (1 - Tdap) 01/17/2003 HEPATITIS B VACCINE (1 of 3 - 19+ 3-dose series) 01/17/2003 HPV VACCINE (1 - 3-dose SCDM series) 01/17/2011 DEPRESSION SCREENING 02/14/2024 COVID-19 VACCINE (1 - 4-2 5 season) 2024 INFLUENZA VACCINE (#1) 2024 ZOSTER VACCINE (1 [...] patient's age to complete this topic Insurance [facility] Advance Directives * Full Code (Latest Code Status on File) Date Activated Date Inactivated Comments 08/15/2013 3:59 PM 08/19/2013 1:05 PM Care Teams Roll Edge Machine Operator Relationship Specialty Start Date End Date Alexis Hopper MD [address] [place] [id number] PCP - General Internal Medicine 08/15/13
--- OUTSIDE RECORDS SUMMARY | 2024-10-22 09:01 | XMS_ITS | Clinical Summary ---
Author Organization [facility] Address [address] [place] [phone] Phone Care Team Providers Care Collet Gluer Name Role Phone Unavailable Primary Care Provider [...] (1 of 3 - 19+ 3-dose series) 06/2002 HPV/Cotest (21-29) 01/17/2005 HPV VACCINES (1 - 3-dose SCDM series) 01/17/2011 CERVICAL CANCER SCREENING 01/17/2014 HPV/Cotest (30-65) 01/17/2014 PAP SMEAR 01/17/2014 BREAST CANCER SCREENING 2024 INFLUENZA VACCINE (#1) 2024 Insurance [facility] PPO [id number]
--- OUTSIDE RECORDS SUMMARY | 2024-10-22 09:01 | XMS_ITS | Encounter Summary ---
Author Organization [facility] Address [address] [place] [address] Care Team Providers Care Police Chief Name Role Phone Shawn Lugo MD Primary Care Provider [phone] Kamala Gordon MD Unavailable [phone] Encounter Details Date Type Department Care Team (Late st Contact Info) Description 09/16/2024 Results Follow-Up [facility] Primary Care at [address] [phone] Shawn Lugo MD [address] [place] [phone] CBC with auto differential, Comprehensive metabolic panel, Lipid panel, Additional followed-up results: 2 Social History Tobacco Use Types Packs/Day Years Used Date Smoking Tobacco: Never Smokeless Tobacco: Never Alcohol Use Standard Drinks/Week Comments Yes 0 (1 standard drink = 0.6 oz pur e alcohol) occasionally AUDIT-C Answer Date Recorded Q1: How often do you have a drink containing alcohol? Never 09/16/2024 Q2: How many drinks containi ng alcohol do you have on a typical day when you are drinking? Patient does not drink Q3: How often do you have si x or more drinks on one occasion? 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 Never 09/16/2024 8:30 AM MIGUEL ÁNGELT Shawn Lugo MD Q2: How many drinks containing alcohol do you have on a typical day when you are drinking? Patient does not drink 09/16/2024 8:30 AM MIGUEL ÁNGELT Shawn Lugo MD Q3: How often do you have six or more drinks on one occasion? Never 09/16/2024 8:30 AM MIGUEL ÁNGELT Shawn Lugo MD documented as of this encounter Plan of Treatment Not on file documented as of this encounter Visit Diagnoses Not on filedocumented in this encounter Care Teams Police Chief Relationship Specialty Start Date End Date Shawn Lugo MD [address] [place] [address] PCP - General Family Medicine 12/10/20 Kamala Gordon MD [address] [place] [address] Referring Physician Gynecology 09/13/21 documented as of this encounter
--- OUTSIDE RECORDS SUMMARY | 2024-10-22 09:01 | XMS_ITS | Clinical Summary ---
Author Organization [facility] Address [address] [place] [address] Care Team Providers Care Medical Billing Specialist Name Role Phone Shawn Lugo MD Primary Care Provider [phone] Kamala Gordon MD Unavailable [phone] Allergies Active Allergy Reactions Criticality Noted Date [...] adult visit has been performed today. 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 Advised Pt does not [...] 08/31/2018 Assessment & Plan (04/20/2018 10:12 AM 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): Recommended naproxen 1 tab with food twice [...] with little improvement sx Iron deficiency anemia nahomion yeison to inadequate dietary iron intake 08/29/2016 8 Encounters Date Type Department Care Team Description 09/16/2024 8:50 AM CDT Lab [address] [address] Well adult exam; Screening, lipid; Screening for thyroid disorder 09/16/2024 8:00 AM CDT Office Visit [facility] Primary Care at [address] [phone] Shawn Lugo MD Well adult exam (Primary Dx); Screening, lipid; Screening for thyroid disorder 09/16/2024 Results Follow-Up [facility] Primary Care at [address] [phone] Shawn Lugo MD CBC with auto differential, Comprehensive metabolic panel, Lipid panel, Additional followed-up results: 2 from Last 3 Months Immunizations Immunization Administration Dates Next Due Influenza, [...] Surgical History Surgery Date Site/Laterality Comments SECTION August 15, 2013 FOOT SURGERY 02/13/2007 - 02/13/2008 Right Medical History Medical History Date Comments 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 Hx Other Medical r foot fx, surg dav Hypertension Generalized anxiety disorder 12/10/2020 Kidney stone Brain concussion August 22, 2024 Family History Medical History Relation Name Comments [...] Grandfather Cancer, colon; Hypertension Paternal Grandmother Nati Frields Relation Name Status Comments Father Seven Chambers Alive Maternal Grandfather Oskar Ramírez Alive Maternal Grandmother Natalia Ramírez Alive Mother Lorrie Chambers Alive Paternal Grandfather Alive Paternal Grandmother Natimegan Chambers Alive Social History Tobacco Use Types Packs/Day Years Used Date Smoking Tobacco: Never Smokeless Tobacco: Never Tobacco Cessation:Counseling Given: Not [...] on file Legal Sex Female 12:40 PM 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 Gender Identity Female 12/09/2020 8:32 PM CDT Sexual Orientation Straight 12/09/2020 8: 32 PM CDT 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 on file Not on file Obstetrics History Last Filed Vital Signs Vital Sign Reading Time Taken Comments Blood Pressure 114/70 09/16/2024 8:15 AM CDT Pulse 84 09/16/2024 8:15 AM CDT Temperature 36.1 C (96.9 F) 09/16/2024 8:15 AM CDT Respiratory Rate 16 09/16/2024 8:15 AM CDT Oxygen Saturation 99% 09/16/2024 8:15 AM CDT Inhaled Oxygen Concentration - - Weight 83.5 kg (184 lb) 09/16/2024 8:15 AM CDT Height 162.6 cm (5' 4) 09/16/2024 8:15 AM CDT Body Mass Index 31.58 09/16/2024 8:15 AM CDT Plan of Treatment Health Maintenance Due Date Last Done Comments HPV Vaccines (1 - 3-dose SCDM series) 01/17/2011 Covid-19 Vaccine ( season) 2023 02/25/2021, 05/04/2020, 04/02/2020 Influenza Vaccine (#1) 2024 , 11/16/2019, 01/25/2019, Additional history exists Cervical Cancer Screening 02/12/2025 02/04/2020 Po stponed from 02/03/2021 (Insurance / Financial) Breast Cancer Screening-Mammogram 06/23/2025 Postponed from 1984 (Patient declined, but will receive in the future) Depression Screening 09/16/2025 09/16/2024, 09/14/2023, 09/13/2022, Additional history exists Regular Well Visit/Exam 18-64 09/16/2025 09/16/2024, 09/14/2023, 09/13/2022, Additional history exists DTaP/Tdap/Td Vaccine (4 - Td or Tdap) 09/13/2033 09/14/2023, 07/15/2013, 09/14/2009 Hepatitis B Screening Completed 09/14/2023 Hepatitis C Screening Completed 09/14/2023 Pneumococcal vaccine <65 Aged Out No longer eligible based on patient's age to complete this topic Varicella Vaccines Discontinued Procedures Procedure Name Priority Date/Time Associated Diagnosis Comments DIFFERENTIAL AUTO Routine 09/16/2024 8:5 7 AM CDT Well adult exam EGFR Routine 09/16/2024 8:57 AM CDT Well adult exam THYROID FUNCTION CASCADE Routine 09/16/2024 8:57 AM CDT Screening for thyroid disorder LIPID PANEL Routine 09/16/2024 8:57 AM CDT Screening, lipid COMPREHENSIVE METABOLIC PANEL Routine 09/16/2024 8:57 AM CDT Well adult exam CBC WITH AUTO DIFFERENTIAL Routine 09/16/2024 8:57 AM CDT Well adult exam HEPATITIS C ANTIBODY Routine 09/14/2023 8:34 AM CDT Need for hepatitis C screening test HM PAP SMEAR WITH HPV Routine 02/04/2020 from Last 3 Months or Most Recently Relevant to Health Maintenance Results * eGFR (09/16/2024 8:57 AM CDT) eGFR 89 >=60 mL/min/1. 73 m2 Comment: Interpretive Data Reference Interval Normal >/= 90 mL/min/1.73m2 Mildly decreased* 60 - 89 mL/min/1.73m2 Mildly to moderately decreased 45 - 59 mL/min/1.73m2 Moderately to severely decreased 30 - 44 mL/min/1.73m2 Severely decreased 15 - 29 mL/min/1.73m2 Kidney Failure < 15 mL/min/1.73m2 *Relative to young adult level Estimated glomerular filtration rate is determined by the 2020 CKD-EPI equation recommended by the National Kidney Foundation (A Unifying Approach to GFR Estimation: Recommendations of the NKF-ASK Task Force on Reassessing the Inclusion of Race in Diagnosing Kidney Disease, JASN 2020). The CKD-EPI equation should not be used for patients with unstable renal function and has not been validated in children and those over 70. Current interpretive data was last reviewed 2020. Blood 09/16/2024 8:57 AM CDT 09/16/2024 11:16 AM CDT us Shawn Lugo MD LAB BLOOD ORDERABLES Final Result Performing Organization Address City/State/[facility] Co de Phone Number [facility] [address] Department [place] [address] * Differential, auto (09/16/2024 8:57 AM CDT) Pathologist [facility] Neutrophil abs 4.15 1.50 - 6.50 K/cumm Imm gran abs 0.01 0.00 - 0.10 K/cumm [facility] Lymphocyte abs 1.46 0.80 - 3.30 K/cumm [facility] Monocyte abs 0.31 0.20 - 0.80 K/cumm [facility] Eosinophil abs 0.08 0.00 - 0.50 K/cumm [facility] Basophil abs 0.06 0.00 - 0.10 K/cumm [facility] Neutrophil pct 68.3 % [facility] Comment: Interpretive Data Percent cell count reference ranges are not reported, since discordance with absolute values may lead to misinterpretation of CBC data. Current Interpretive Data was last revised on 2017. Imm gran pct 0.2 % [facility] Comment: Interpretive Data Percent cell count reference ranges are not reported, since discordance with absolute values may lead to misinterpretation of CBC data. Current Interpretive Data was last revised on 2017. Lymphocyte pct 24.1 % [facility] Comment: Interpretive Data Percent cell count reference ranges are not reported, since discordance with absolute values may lead to misinterpretation of CBC data. Current Interpretive Data was last revised on 2017. Monocyte pct 5.1 % [facility] Comment: Interpretive Data Percent cell count reference ranges are not reported, since discordance with absolute values may lead to misinterpretation of CBC data. Current Interpretive Data was last revised on 2017. Eosinophil pct 1.3 % [facility] Comment: Interpretive Data Percent cell count reference ranges are not reported, since discordance with absolute values may lead to misinterpretation of CBC data. Current Interpretive Data was last revised on 2017. Basophil pct 1.0 % [facility] Comment: Interpretive Data Percent cell count reference ranges are not reported, since discordance with absolute values may lead to misinterpretation of CBC data. Current Interpretive Data was last revised on 2017. Blood 09/16/2024 8:57 AM CDT 09/16/2024 12:17 PM CDT Shawn Lugo MD LAB BLOOD ORDERABLES Final Result Performing Organization Address [facility] Co de Phone Number [address] [place] [address] * Thyroid Function [place] (09/16/2024 8:57 AM CDT) TSH 2.03 0.30 - 4.20 mcIUnit/mL Blood 09/16/2024 8:57 AM CDT 09/16/2024 11:16 AM CDT Shawn Lugo MD LAB BLOOD ORDERABLES Final Result Performing Organization Address City/[facility] Co de Phone Number [id number] [place] [address] * (ABNORMAL) CBC with auto differential (09/16/2024 8:57 AM CDT) WBC 6.07 3.80 - 9.90 K/cumm Hgb 15.7(H) 11.9 - 15.5 g/dL [facility] Hct 46.1(H) 35.6 - 45.5 % [facility] Plt 285 150 - 400 K/cumm [facility] MPV 9.9 9.1 - 12.3 fL [facility] RBC 4.89 3.90 - 5.20 M/cumm [facility] MCV 94.3 81.3 - 96.4 fL [facility] MCH 32.1 27.1 - 33.3 pg [facility] MCHC 34.1 32.3 - 35.7 g/dL [facility] RDW CV 11.9 11.1 - 14.9 % [facility] RDW SD 41.2 35.7 - 48.1 fL [facility] NRBC abs 0.00 0.00 - 0.01 K/cumm [facility] Blood 09/16/2024 8:57 AM CDT 09/16/2024 11:18 AM CDT Shawn Lugo MD LAB BLOOD ORDERABLES Final Result [facility] [address] Department [place] [address] * (ABNORMAL) Lipid panel (09/16/2024 8:57 AM CDT) Cholesterol 213(H) 30 - 199 mg/dL Comment: Interpretive Data Ages < or = 19 years Acceptable: <170 mg/dL Borderline high: 170-199 mg/dL High: >or= 200 mg/dL Ages > or = 20 years Desirable: <200 mg/dL Borderline high: 200-239 mg/dL High: >or= 240 mg/dL Literature References: 1. Expert Panel on Integrated Guidelines for Cardiovascular Health and Risk Reduction in Children and Adolescents. Pediatrics 2011;128:S213 2. NCEP Expert Panel. Circulation 2004;110:227 Current Interpretive Data was last revised on 2017. Triglycerides 111 <=149 mg/dL [facility] Comment: Interpretive Data Ages < or = 9 years Acceptable: <75 mg/dL Borderline high: 75-99 mg/dL High: >or= 100 mg/dL Ages 10 to 20 years Acceptable: <90 mg/dL Borderline high: 90-129 mg/dL High: >or= 130 mg/dL Ages > or = 20 years Desirable: <150 mg/dL Borderline high: 150-199 mg/dL High: 200-499 mg/dL Very high: >or= 499 mg/dL Literature References: 1. Expert Panel on Integrated Guidelines for Cardiovascular Health and Risk Reduction in Children and Adolescents. Pediatrics 2011;128:S213 2. NCEP Expert Panel. Circulation 2004;110:227 Current Interpretive Data was last revised on 2017. HDL 41 >=40 mg/dL [facility] Comment: Interpretive Data Ages < or = 19 years Acceptable: >45 mg/dL Borderline low: 40-45 mg/dL Low: <40 mg/dL Ages > or = 20 years Desirable: >or= 60 mg/dL Low: <40 mg/dL Literature References: 1. Expert Panel on Integrated Guidelines for Cardiovascular Health and Risk Reduction in Children and Adolescents. Pediatrics 2011;128:S213 2. NCEP Expert Panel. Circulation 2004;110:227 Current Interpretive Data was last revised on 2017. LDL, calculated 152(H) <=129 mg/dL [facility] Comment: Interpretive Data Ages < or = 19 years Acceptable: <110 mg/dL Borderline high: 110-129 mg/dL High: >or= 130 mg/dL Ages > or = 20 years Optimal: <100 mg/dL Near optimal: 100-129 mg/dL Borderline high: 130-159 mg/dL High: >160 mg/dL Calculated using the Randall LDL-C estimating equation. This equation was implemented on 2023. Prior to this date LDL-C was estimated using the Friedewald equation. Literature References: 1. Expert Panel on Integrated Guidelines for Cardiovascular Health and Risk Reduction in Children and Adolescents. Pediatrics 2011;128:S213 2. NCEP Expert Panel. Circulation 2004;110:227 3. Randall Whitten al. TRACY Cardiol. 2020 June 13;5(5):540-548. doi: 10.1001/jamacardio.2020.0013 Current Interpretive Data was last revised on 2023. Non-HDL Cholesterol 172 mg/dL [facility] Comment: Interpretive Data Ages < or = 19 years Acceptable: <120 mg/dL Borderline high: 120-144 mg/dL High: >145 mg/dL Ages > or = 20 years When triglycerides are >200 mg/dL, Non-HDL cholesterol is a secondary target of therapy with treatment goals that are 30 mg/dL greater than the LDL cholesterol target. Literature References: 1. Expert Panel on Integrated Guidelines for Cardiovascular Health and Risk Reduction in Children and Adolescents. Pediatrics 2011;128:S213 2. NCEP Expert Panel. Circulation 2004;110:227 Current Interpretive Data was last revised on 2017. Chol/HDL ratio 5 [facility] Blood 09/16/2024 8:57 AM CDT 09/16/2024 11:16 AM CDT us Shawn Lugo MD LAB BLOOD ORDERABLES Final Result [place] [id number] [facility] Department [place] [address] * Comprehensive metabolic panel (09/16/2024 8:57 AM CDT) Sodium 136 135 - 145 mmol/L Potassium, pl 4.2 3.3 - 4.9 mmol/L [facility] Chloride 103 97 - 110 mmol/L [facility] CO2 22 22 - 32 mmol/L [facility] Anion gap 11 2 - 15 mmol/L [facility] BUN 10 6 - 25 mg/dL [facility] Creatinine 0.85 0.60 - 1.10 mg/dL [facility] Glucose 94 70 - 199 mg/dL [facility] Comment: Interpretive Data Fasting glucose >/= 126 mg/dl is diagnostic for diabetes. Fasting is defined as no caloric intake for at least 8 hours. Fasting glucose between 100 mg/dl to 125 mg/dl is diagnostic of prediabetes. In a patient with classic symptoms of hyperglycemia or hyperglycemic crisis, a random glucose >/= 200 mg/dl is diagnostic for diabetes. In the absence of unequivocal hyperglycemia, results should be confirmed by repeat testing. The classification and Diagnosis of Diabetes Diabetes Care 2021; 46: S19-S40. Current interpretive data was last revised 2022. Calcium 9.1 8.5 - 10.3 mg/dL [facility] Bilirubin, total 0.4 0.1 - 1.2 mg/dL [facility] Protein, pl 7.3 6.5 - 8.5 g/dL [facility] Albumin 4.2 3.5 - 5.0 g/dL [facility] Alk phos 119 40 - 130 Units/L [facility] ALT 7 7 - 45 Units/L [facility] AST 18 10 - 45 Units/L [facility] Blood 09/16/2024 8:57 AM CDT 09/16/2024 11:16 AM CDT Shawn Lugo MD LAB BLOOD ORDERABLES Final Result Performing Organization Address City/[facility] Co de Phone Number [facility] [address] [facility] [address] [place] [address] * Hepatitis C antibody Blood (09/14/2023 8:34 [...] LAB MICROBIOLOGY - GENERAL ORDERABLES Final Result [facility] [address] Department of Laboratories [place], [place] [id number] * HM PAP SMEAR WITH HPV (02/04/2020) Rasheed Meng MD HEALTH MAINTENANCE Final Result from Last 3 Months or Most Recently Relevant to Health Maintenance Insurance [facility] PL[facility] Care Teams Medical Billing Specialist Relationship Specialty Start Date End Date Shawn Lugo MD [address] [place] [address] PCP - General Family Medicine 12/10/20 Kamala Gordon MD [address] [place], [place] [id number] Referring Physician Gynecology 09/13/21
== END 2024-10-22 08:33 | disposition home or self-care (01) ==
PROVIDERS: PCP Family Medicine; Visit Provider Obstetrics & Gynecology Gynecology
DX: R92.8 Other abnormal and inconclusive findings on diagnostic imaging of breast (principal)
CPT/HCPCS: 76642; 77061; 77065; G0279

== ENCOUNTER 2024-11-07 07:58 | Outpatient (CLI) | payer OTHER, SELFPAY ==
--- NOTE | ~2024-11-07 | MMUS_ITS ---
PROCEDURE: MM post biopsy diagnostic LT, US breast biopsy LT w image CLINICAL HISTORY: 39-year-old female with suspicious left breast mass presents for ultrasound-guided core needle biopsy procedure. COMPARISON: 10/22/2024 Following informed consent including risks, benefits, and possible complications, the patient was brought to the ultrasound suite. A time-out procedure was performed. A preliminary ultrasound of the left breast was performed, redemonstrating hypoechoic mass at 1:00, 1 cm from the nipple. The patient was prepped and draped in the usual sterile fashion. 1% lidocaine was instilled into the subcutaneous tissues. 1% lidocaine without epinephrine was injected into the deep tissues just inferior to the lesion. Approximately 15cc lidocaine was administered. A small skin khadar was made. Multiple core samples were obtained with a 14-gauge multi pass biopsy needle. A post biopsy coil Evart Eh marker was placed at the biopsy site. Postprocedural mammogram of the left breast in craniocaudal and mediolateral projections reveal the post biopsy metal marker Migrated lateral to the biopsy site. The patient tolerated the procedure well and was without immediate postprocedural complications. IMPRESSION: Successful ultrasound guided biopsy of left breast mass. A post biopsy coil Evart Eh marker was placed at the biopsy site, which is seen on postprocedural mammogram. The patient tolerated the procedure well without immediate postprocedure complications. The patient was given postprocedural instructions and sent home in stable condition. Biopsy results pending. Reviewed, dictated and finalized at location B. IMPRESSION: Successful ultrasound guided biopsy of left breast mass. A post bio psy coil Evart Eh marker was placed at the biopsy site, which is seen on post procedural mammogram. The patient tolerated the procedure well without immediate postprocedure compli cations. The patient was given postprocedural instructions and sent home in sta ble condition. Biopsy results pending.
--- OUTSIDE RECORDS SUMMARY | 2024-11-07 08:05 | XMS_ITS | Encounter Summary ---
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
--- OUTSIDE RECORDS SUMMARY | 2024-11-07 08:07 | XMS_ITS | Clinical Summary ---
Author Organization [facility] Address [address] [place] [phone] Phone Care Team Providers Care Drag Out Man Name Role Phone Unavailable Primary Care Provider [...] SCREENING 2024 INFLUENZA VACCINE (#1) [address] [facility] PPO [id number]
--- OUTSIDE RECORDS SUMMARY | 2024-11-07 08:08 | XMS_ITS | Clinical Summary ---
Author Organization [facility] Address [address] [place] [address] Care Team Providers Care Occupational Therapist Rehab Manager Name Role Phone Alexis Hopper MD Primary Care Provider Source Comments [facility],non-owned Affiliates and Associated Physician Practices is amultiple site organization consisting of ambulatory clinics and hospital sitesin [place], [place], [place]. This disclosure is being madepursuant to the Care Everywhere program and may not contain all information available regarding this patient. Last updated 17.[facility] Allergies Active Allergy Reactions Criticality Noted Date [...] Comments Blood Pressure 118/76 01/25/2016 4:03 PM MACHINE GROUP LEADER Pulse 82 01/25/2016 4:03 PM MACHINE GROUP LEADER Temperature 37.3 C (99.1 F) 01/25/2016 4:03 PM MACHINE GROUP LEADER Respiratory Rate 16 01/25/2016 4:03 PM MACHINE GROUP LEADER Oxygen Saturation 98% 01/25/2016 4:03 PM MACHINE GROUP LEADER Inhaled Oxygen Concentration - - Weight 68 kg (150 lb) 01/25/2016 4:03 PM MACHINE GROUP LEADER Height 162.6 cm (5' 4) 01/25/2016 4:03 PM MACHINE GROUP LEADER Body Mass Index 25.75 01/25/2016 4:03 PM MACHINE GROUP LEADER Plan of Treatment Health Maintenance Due Date [...] patient's age to complete this topic Insurance [facility] Advance Directives * Full Code (Latest Code Status on File) Date Activated Date Inactivated Comments 08/15/2013 3:59 PM 08/19/2013 1:05 PM Care Teams Occupational Therapist Rehab Manager Relationship Specialty Start Date End Date Alexis Hopper MD [address] [place] [phone] PCP - General Internal Medicine 08/15/13
--- OUTSIDE RECORDS SUMMARY | 2024-11-07 08:08 | XMS_ITS | Clinical Summary ---
Author Organization [facility] Address [address] [place] [address] Care Team Providers Care Railroad Design Consultant Name Role Phone Shawn Lugo MD Primary Care Provider [phone] Kamala Gordon MD Unavailable [phone] Allergies Active Allergy Reactions Criticality Noted Date [...] 04/20/2018 Assessment & Plan (04/20/2018 10:12 AM SIDEWALK INSPECTOR): Lymphadenopathy verses cyst. Advised Pt does [...] 08/31/2018 Assessment & Plan (04/20/2018 10:12 AM SIDEWALK INSPECTOR): Recommended naproxen 1 tab with food [...] Team Description 09/16/2024 8:50 AM CDT Lab [address] [address] Well adult exam; Screening, lipid; Screening for thyroid disorder 09/16/2024 8:00 AM CDT Office Visit [facility] Primary Care at [address] [phone] Shawn Lugo MD Well adult exam (Primary Dx); Screening, lipid; Screening for thyroid disorder 09/16/2024 Results Follow-Up [facility] Primary Care at [address] [phone] Shawn Lugo MD CBC with auto differential, [...] Medical History Date Comments 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 Hx Other Medical r foot fx, surg [...] on file Legal Sex Female 12:40 PM SIDEWALK INSPECTOR Gender Identity Female 12/09/2020 8:32 PM [...] SCDM series) 01/17/2011 Covid-19 Vaccine ( season) 2024 02/25/2021, 05/04/2020, 04/02/2020 Influenza Vaccine (#1) 2024 , 11/16/2019, 01/25/2019, Additional history exists Cervical Cancer Screening 02/12/2025 02/04/2020 Po stponed from 02/03/2021 (Insurance / Financial) Depression Screening 09/16/2025 09/16/2024, 09/14/2023, 09/13/2022, Additional history exists Regular Well Visit/Exam 18-64 09/16/2025 09/16/2024, 09/14/2023, 09/13/2022, Additional history exists Breast Cancer Screening-Mammogram 10/23/2025 10/23/2024 DTaP/Tdap/Td Vaccine (4 - Td or Tdap) 09/13/2033 09/14/2023, 07/15/2013, 09/14/2009 Hepatitis B Screening Completed 09/14/2023 Hepatitis C Screening Completed 09/14/2023 Pneumococcal vaccine <65 Aged Out No longer eligible based on patient's age to complete this topic Varicella Vaccines Discontinued Procedures Procedure Name Priority Date/Time Associated Diagnosis Comments HM MAMMOGRAPHY Routine 10/23/2024 9:21 AM CDT DIFFERENTIAL AUTO Routine 09/16/2024 8:5 7 AM [...] CDT Need for hepatitis C screening test PAP SMEAR WITH HPV Routine 02/04/2020 from Last 3 Months or Most Recently Relevant to Health Maintenance Results * (ABNORMAL) HM MAMMOGRAPHY (10/23/2024 9:21 AM CDT) Mammography Abnormal us Kamala Gordon MD HEALTH MAINTENANCE Final Result * eGFR (09/16/2024 8:57 AM CDT) Pathologist [facility] eGFR 89 >=60 mL/min/1. 73 m2 Comment: [...] Lugo MD LAB BLOOD ORDERABLES Final Result [facility] [address] [facility] Department [place] [address] * Differential, auto (09/16/2024 8:57 AM CDT) Pathologist [facility] Neutrophil abs 4.15 1.50 - 6.50 K/cumm Imm gran abs 0.01 0.00 - 0.10 K/cumm [facility] Lymphocyte abs 1.46 0.80 - 3.30 K/cumm [facility] Monocyte abs 0.31 0.20 - 0.80 K/cumm [facility] Eosinophil abs 0.08 0.00 - 0.50 K/cumm [facility] Basophil abs 0.06 0.00 - 0.10 K/cumm [facility] Neutrophil pct 68.3 % [facility] Comment: Interpretive Data Percent cell count reference ranges are not reported, since discordance with absolute values may lead to misinterpretation of CBC data. Current Interpretive Data was last revised on 2017. Imm gran pct 0.2 % [facility] Comment: Interpretive Data Percent cell count reference ranges are not reported, since discordance with absolute values may lead to misinterpretation of CBC data. Current Interpretive Data was last revised on 2017. Lymphocyte pct 24.1 % [facility] Comment: Interpretive Data Percent cell count reference ranges are not reported, since discordance with absolute values may lead to misinterpretation of CBC data. Current Interpretive Data was last revised on 2017. Monocyte pct 5.1 % [facility] Comment: Interpretive Data Percent cell count reference ranges are not reported, since discordance with absolute values may lead to misinterpretation of CBC data. Current Interpretive Data was last revised on 2017. Eosinophil pct 1.3 % [facility] Comment: Interpretive Data Percent cell count reference ranges are not reported, since discordance with absolute values may lead to misinterpretation of CBC data. Current Interpretive Data was last revised on 2017. Basophil pct 1.0 % [facility] Comment: Interpretive Data Percent cell count reference ranges are not reported, since discordance with absolute values may lead to misinterpretation of CBC data. Current Interpretive Data was last revised on 2017. Blood 09/16/2024 8:57 AM CDT 09/16/2024 12:17 PM CDT Shawn Lugo MD LAB BLOOD ORDERABLES Final Result Performing Organization Address [facility] Co de Phone Number [facility] [address] [facility] [place] [address] * Thyroid Function [place] (09/16/2024 8:57 AM CDT) TSH 2.03 0.30 - 4.20 mcIUnit/mL Blood 09/16/2024 8:57 AM CDT 09/16/2024 11:16 AM CDT Shawn Lugo MD LAB BLOOD ORDERABLES Final Result [address] [place] [address] * (ABNORMAL) CBC with auto differential (09/16/2024 8:57 AM CDT) WBC 6.07 3.80 - 9.90 K/cumm Hgb 15.7(H) 11.9 - 15.5 g/dL [facility] Hct 46.1(H) 35.6 - 45.5 % [facility] Plt 285 150 - 400 K/cumm [facility] MPV 9.9 9.1 - 12.3 fL [facility] RBC 4.89 3.90 - 5.20 M/cumm [facility] MCV 94.3 81.3 - 96.4 fL [facility] MCH 32.1 27.1 - 33.3 pg [facility] MCHC 34.1 32.3 - 35.7 g/dL [facility] RDW CV 11.9 11.1 - 14.9 % [facility] RDW SD 41.2 35.7 - 48.1 fL [facility] NRBC abs 0.00 0.00 - 0.01 K/cumm [facility] Blood 09/16/2024 8:57 AM CDT 09/16/2024 11:18 AM CDT us Shawn Lugo MD LAB BLOOD ORDERABLES Final Result Performing Organization Address [facility] Co de Phone Number [address] [place] [address] * (ABNORMAL) Lipid panel (09/16/2024 8:57 AM [...] revised on 2017. Triglycerides 111 <=149 mg/dL [facility] Comment: Interpretive Data Ages < [...] 2. NCEP Expert Panel. Circulation 2004;110:227 3. Pereira M et al. TRACY Cardiol. 2019June 13;5(5):540-548. doi: 10.1001/jamacardio.2020.0013 Current Interpretive Data was last revised on 2023. Non-HDL Cholesterol 172 mg/dL [facility] Comment: Interpretive Data Ages < or = [...] last revised on 2017. Chol/HDL ratio 5 [facility] Blood 09/16/2024 8:57 AM CDT 09/16/2024 11:16 AM CDT Sahwn Lugo MD LAB BLOOD ORDERABLES Final Result [facility] [address] [facility] Department of Laboratories [place], [place] [id number] * Comprehensive metabolic panel (09/16/2024 8:57 AM CDT) Sodium 136 135 - 145 mmol/L Potassium, pl 4.2 3.3 - 4.9 mmol/L [facility] Chloride 103 97 - 110 mmol/L [facility] CO2 22 22 - 32 mmol/L [facility] Anion gap 11 2 - 15 mmol/L [facility] BUN 10 6 - 25 mg/dL [facility] Creatinine 0.85 0.60 - 1.10 mg/dL [facility] Glucose 94 70 - 199 mg/dL [facility] Comment: Interpretive Data Fasting glucose >/= 126 [...] classification and Diagnosis of Diabetes Diabetes Care 202; 46: S19-S40. Current interpretive data was last revised 2022. Calcium 9.1 8.5 - 10.3 mg/dL [facility] Bilirubin, total 0.4 0.1 - 1.2 mg/dL [facility] Protein, pl 7.3 6.5 - 8.5 g/dL [facility] Albumin 4.2 3.5 - 5.0 g/dL [facility] Alk phos 119 40 - 130 Units/L [facility] ALT 7 7 - 45 Units/L [facility] AST 18 10 - 45 Units/L [facility] Blood 09/16/2024 8:57 AM CDT 09/16/2024 11:16 AM CDT Shawn Lugo MD LAB BLOOD ORDERABLES Final Result Performing Organization Address [facility] Co de Phone Number [facility] [address] [facility] Department [place] [address] * Hepatitis C antibody Blood (09/14/2023 8:34 [...] MICROBIOLOGY - GENERAL ORDERABLES Final Result [facility] [address] Department [place] [address] * PAP SMEAR WITH HPV (02/04/2020) us Historical Provider HEALTH MAINTENANCE Final Result from Last 3 Months or Most Recently Relevant to Health Maintenance Insurance [facility] CHOICE PLUS [facility] CHOICE PLUS [facility] CHOICE PLUS Care Teams Railroad Design Consultant Relationship Specialty Start Date End Date Shawn Lugo MD [address] [place], [place] [phone] PCP - General Family Medicine 12/10/20 Kamala Gordon MD [address] [place] [address] Referring Physician Gynecology 09/13/21
--- NOTE | 2024-11-07 09:37 | S_PTH ---
PATIENT: Kwesi Plata LOC: [facility] U#:[id number] AGE/SX: 39/F ROOM: RE11/07/[address]: Elsa Douglas MD : 1985 BED: DIS: 11/07/2024 SPEC #: [id number] RECD: 11/07/24 10:20 STATUS: CASSIE REPopeye #: [id number] JESUS: 11/07/24 09:[address]: Elsa Douglas DEPT: [facility] Surgical RECD BY: Denise Cutler ENTERED: 11/07/24 10:21 SP TYPE: Surgical OTHR DR: Shawn LugoMD Tissues: A - Breast Biopsy Procedures: P63 Bell Keratin Hematoxylin and Eosin Stain E-Cadherin Gross and Microscopic Level 4 ER-60 KS-60 MIB-60 HER 2-60 CK 5
== END 2024-11-07 07:59 | disposition home or self-care (01) ==
PROVIDERS: PCP Family Medicine; Visit Provider Surgery
DX: N63.21 Unspecified lump in the left breast, upper outer quadrant (principal); R92.8 Other abnormal and inconclusive findings on diagnostic imaging of breast
CPT/HCPCS: 19083; 77065; 88305; 88342; 88360; A4648

== ENCOUNTER 2025-01-18 08:09 | Emergency (ER) | payer BC, SELFPAY ==
--- NOTE | 2025-01-18 08:16 | ED_ITS ---
HPI - URI/Sore Throat General Chief Complaint: Headache Stated Complaint: Headache Time Seen by Provider: 01/18/25 08:11 Source: patient Mode of arrival: ambulatory Limitations: no limitations Related Data Home Medications ?Medication ?Instructions ?Recorded ?Confirmed ?Last Taken ?Type norethindrone 1 mg-ethinyl tablet PO DAILY 10/07/20 U nknown History estradiol 20 mcg (21)-iron 75 mg (7) tablet (Blisovi Fe 03/04 ()) escitalopram oxalate 10 mg tablet 10 tablet PO DAILY 0 08/01/21 08/01/21 Unknown History Allergies Allergy/AdvReac Type Severity Reaction Status Date / Time codeine Allergy Unknown Unknown Verified 01/18/25 09:00 Review of Systems Review of Systems: All systems reviewed & are unremarkable except as noted in HPI and below Constitutional: Constitutional: Denies chills, Denies fatigue, Denies fever(s), Denies headache(s), Denies malaise and Denies weakness Eyes: Eyes: Denies blurry vision, Denies itchy eyes and Denies loss of vision ENT: Denies otalgia, Denies headache(s), Reports nasal congestion, Denies sinus pain and Denies sore throat Cardiovascular: Cardiovascular: Denies chest pain, Denies irregular heart rhythm and Denies dyspnea Respiratory: Respiratory: Reports cough and Denies dyspnea Gastrointestinal: Gastrointestinal: Denies abdominal pain, Denies diarrhea, Denies nausea and Denies vomiting Musculoskeletal: Musculoskeletal: Denies back pain, Denies myalgias and Denies arthralgias Integumentary/Breasts: Skin/Breast: Denies pruritus and Denies rash Neurologic: Denies headache(s), Denies loss of vision and Denies weakness Psychiatric: Psychiatric: Reports no additional psychiatric complaints Endocrine: Endocrine: Denies fatigue Allergic/Immunologic: Allergic/Immunologic: Denies itchy eyes PMFSH Family History Family History Grandparent Diabetes mellitus Hypertension Malignant neoplasm of prostate Family history of coronary artery disease Mother Diabetes mellitus Father Hypertension Other Family history of cardiovascular disease Social History Social History (Updated 10/28/24 @ 14:18 by Charmaine Berkowitz CMA) Smoking status: Never smoker Alcohol intake: current Substance use: never Substance use type: does not use Lack of Transportation: No Lack of Food: Never True Current Housing: I Have Housing Concerned About Future Housing: No Difficulty Paying Gas/Electric Bills: No Difficulty Paying for Meds: No Currently Unemployed: No Education: Master's Degree or Higher Difficulty w/ Childcare or Family Care: No Comments At time of signature, agree with nursing past medical, surgical, social and family history. There is no relevant family history pertinent to the presenting complaint. Exam Const: General: cooperative, healthy appearing, comfortable, no acute distress and well nourished Nutritional Appearance: well nourished Orientation/consciousness: patient oriented x3 Limitations: no limitations HENMT: Head: normal to inspection, normocephalic and atraumatic Ears: hearing grossly normal bilaterally, external ears normal, TM's normal bilaterally, EAC's normal and no periauricular adenopathy Face/Nose/Sinus: Normal external nose present, Abnormal mucous membranes and turbinates present erythematous bilateral and diffuse, normal facial exam, sinuses nontender and face symmetric Face and sinus: normal facial exam, sinuses nontender and face symmetric Mouth: Yes Normal oral and palatal mucosa present, Yes lip normal, Yes tongue normal, Yes Normal salivary glands and ducts present, Yes oropharynx normal and Yes moist mucous membranes Teeth and gingiva: dentition normal Throat: posterior oropharynx normal, tonsils normal and uvula midline Eyes: General: appearance normal, both eyes and all related structures Alignment and Position: alignment normal and position normal Periorbital: periorbital findings normal Eyelids: eyelids normal Pupils: Equal, round and reactive pupils present Neck: Neck: normal visual inspection, full ROM, no lymphadenopathy and supple Chest: Chest palpation & inspection: normal inspection of the chest and normal palpation of entire chest wall Resp: Effort & Inspection: normal respiratory effort and able to speak in complete sentences Auscultation: clear to auscultation bilaterally, no crackles, no rales, no rhonchi and no wheezes Cardio: Rate: regular rate Rhythm: regular rhythm Heart sounds: S1 normal heart sound present and S2 normal heart sound present GI: Inspection: normal to inspection Skin: General skin exam: normal color and no rashes or lesions noted Neuro: General: patient oriented x3 and moves all extremities Cranial nerves: Yes Equal, round and reactive pupils present Speech: normal speech Gait exam (Neuro): Normal gait present Extrem: General: normal to inspection, full ROM and no edema Psych: Appearance: grossly normal and well kempt Mental Status: mental status grossly normal Speech and movement: Normal speech and movement present Affect: normal affect Attitude: cooperative Thought process: Normal thought process present Course Course Emergency Course: Patient is aware of diagnosis, understands and agrees to treatment plan. Anticipatory guidance given. Patient agrees to follow-up as directed and is aware of reasons to seek care at the emergency department. Portions of this record may have been created with voice recognition software Level of Care: Express Care Visit MDM MDM Narrative Medical decision making narrative: Rapid COVID, flu, strep were negative. A throat culture is pending. Symptoms likely viral in etiology. Pt well hydrated appearing, in no respiratory distress, hemodynamically stable. Recommend supportive care. The patient is stable at time of discharge the clinical impression was discussed and the patient was given the opportunity to ask questions, which were addressed as completely as possible given the information available at present. Anticipatory guidance and return to care precautions were discussed and the importance of primary care follow-up was stressed and encouraged. The patient voiced understanding of the plan, indications to return, and the need for follow-up. Exam findings show no acute concerns or changes Patient is appropriate for outpatient treatment and follow-up. Differential Diagnosis Differential Diagnosis: Differential diagnosis considered: Duenas virus, strep pharyngitis, allergic rhinitis, upper respiratory tract infection, sinusitis, rhinosinusitis, nasopharyngitis. viral pharyngitis, otitis media, otitis externa, otitis effusion, foreign body, cerumen impaction, viral syndrome, and influenza. Medical Records I have reviewed the following patient records and this information was taken into consideration when formulating the assessment and plan.: previous clinic visits Discharge Plan Discharge Clinical Impression: Tension headache Patient Disposition: Home Condition: Stable Instructions: Tension Headache (ED) Additional Instructions: take muscle relaxers as needed, they may make you sleepy. Take Zofran as needed for nausea. For pain, you may take: Tylenol 650-1000mg by mouth every 4-6 hours. Do not exceed 4000mg in 24 hours. Advil (Ibuprofen) 600 mg by mouth every 6 hours. Do not exceed 2400mg in 24 hours. 8 AM: Tylenol 11 AM: Ibuprofen 2 PM: Tylenol 5 PM: Ibuprofen 8 PM: Tylenol 11 PM: Ibuprofen 2 AM: Tylenol 5 AM: Ibuprofen Follow-up with PCP as needed or if you have worsening headache, vision changes, dizziness my persistent vomiting go to the emergency department. Patient Language: [place] Island[place] Prescriptions: New baclofen 10 mg tablet 10 mg PO TID 5 Days Qty: 15 0RF No Action escitalopram oxalate 10 mg tablet 10 tablet PO DAILY norethindrone-e.estradiol-iron [Blisovi Fe 03/04 (28)] 1 mg-20 mcg (21)/75 mg (7) tablet PO DAILY Follow-up/Referrals: Brittney,Shawn Samayoa MD [Primary Care Provider, Unknown] - 3 Days Time of Disposition: 09:02
[2025-01-18 08:19] VITALS: BP 152/99; PULSE 89; RESP 16; TEMP 36.8; O2SAT 99
[2025-01-18] MEDS: KETOROLAC 30 MG/ML VIAL (*BKC) IM (08:46)
--- NOTE | 2025-01-18 09:58 | ED_ITS ---
HPI - Headache General Chief Complaint: Headache Stated Complaint: Headache Time Seen by Provider: 01/18/25 08:11 Source: patient Mode of arrival: ambulatory Limitations: no limitations History of Present Illness HPI Narrative: patient is a 40-year-old female that presents with tension type headache that wraps around her entire head for 1 and half weeks. Patient has tried [id number] pain medication with no relief. Patient does states she only takes them in the morning and night and not throughout the day. Patient denies any vision changes, numbness, tingling or weak discharge tremor use. Denies any congestion, fever, chills will. Patient was on blood pressure medicine but was taken off 1 year ago. Patient states since coming off of blood pressure medicine she has not necessarily felt normal. Patient states she used to have headaches every now and then over the last year she has had more frequent headaches. Patient also had a concussion a few months back but states this is not feel the same. Related Data Home Medications ?Medication ?Instructions ?Recorded ?Confirmed ?Last Taken ?Type norethindrone 1 mg-ethinyl tablet PO DAILY 10/07/20 U nknown History estradiol 20 mcg (21)-iron 75 mg (7) tablet (Blisovi Fe 03/04 (28)) escitalopram oxalate 10 mg tablet 10 tablet PO DAILY 0 08/01/21 08/01/21 Unknown History Allergies Allergy/AdvReac Type Severity Reaction Status Date / Time codeine Allergy Unknown Unknown Verified 01/18/25 09:00 Review of Systems Review of Systems: All systems reviewed & are unremarkable except as noted in HPI and below Constitutional: Constitutional: Denies body ache(s), Denies chills, Denies fatigue, Denies fever(s), Reports headache(s), Denies malaise and Denies weakness Eyes: Eyes: Denies blurry vision, Denies irritation and Denies loss of vision ENT: Denies otalgia, Reports headache(s), Denies nasal discharge, Denies sinus pain and Denies sore throat Cardiovascular: Cardiovascular: Denies chest pain, Denies irregular heart rhythm and Denies dyspnea Respiratory: Respiratory: Denies dyspnea Gastrointestinal: Gastrointestinal: Denies abdominal pain, Denies melena, Denies hematochezia, Denies diarrhea, Denies nausea and Denies vomiting Musculoskeletal: Musculoskeletal: Denies back pain, Denies myalgias and Denies arthralgias Integumentary/Breasts: Skin/Breast: Denies pruritus and Denies rash Neurologic: Reports headache(s), Denies loss of vision and Denies weakness Psychiatric: Psychiatric: Reports no additional psychiatric complaints Endocrine: Endocrine: Denies fatigue PMFSH Family History Family History Grandparent Diabetes mellitus Hypertension Malignant neoplasm of prostate Family history of coronary artery disease Mother Diabetes mellitus Father Hypertension Other Family history of cardiovascular disease Social History Social History Smoking status: Never smoker Alcohol intake: current Substance use: never Substance use type: does not use Lack of Transportation: No Lack of Food: Never True Current Housing: I Have Housing Concerned About Future Housing: No Difficulty Paying Gas/Electric Bills: No Difficulty Paying for Meds: No Currently Unemployed: No Education: Master's Degree or Higher Difficulty w/ Childcare or Family Care: No Comments At time of signature, agree with nursing past medical, surgical, social and family history. There is no relevant family history pertinent to the presenting complaint. Exam Const: General: cooperative, healthy appearing, comfortable, no acute distress and well nourished Nutritional Appearance: well nourished Orientation/consciousness: patient oriented x3 Limitations: no limitations HENMT: Head: normal to inspection, normocephalic and atraumatic Ears: hearing grossly normal bilaterally and external ears normal Face/Nose/Sinus: Normal external nose present, normal facial exam and face symmetric Face and sinus: normal facial exam and face symmetric Mouth: Yes lip normal Eyes: General: appearance normal, both eyes and all related structures Alignment and Position: alignment normal and position normal Periorbital: periorbital findings normal Eyelids: eyelids normal Pupils: Equal, round and reactive pupils present EOM: EOMs intact bilaterally Neck: Neck: normal visual inspection, full ROM and supple Chest: Chest palpation & inspection: normal inspection of the chest Resp: Effort & Inspection: normal respiratory effort and able to speak in complete sentences Auscultation: clear to auscultation bilaterally Cardio: Rate: regular rate Rhythm: regular rhythm Heart sounds: S1 normal heart sound present and S2 normal heart sound present GI: Inspection: normal to inspection Skin: General skin exam: normal color and no rashes or lesions noted Neuro: General: patient oriented x3 and moves all extremities Cranial nerves: Yes Equal, round and reactive pupils present Cognition (Neuro): normal cognition Speech: normal speech Gait exam (Neuro): Normal gait present Motor exam (neuro): 5/5 motor strength present throughout, Normal motor muscle tone present throughout and Motor abnormalities not present Sensory Exam: normal sensation Extrem: General: normal to inspection, full ROM and no edema Psych: Appearance: grossly normal and well kempt Mental Status: mental status grossly normal Speech and movement: Normal speech and movement present Affect: normal affect Attitude: cooperative Thought process: Normal thought process present Course Course Emergency Course: Patient is aware of diagnosis, understands and agrees to treatment plan. Anticipatory guidance given. Patient agrees to follow-up as directed and is aware of reasons to seek care at the emergency department. Portions of this record may have been created with voice recognition software Level of Care: Express Care Visit Vital Signs Vital signs: Vital Signs Temperature 36.8 C 01/18/25 08:19 Pulse Rate 89 01/18/25 08:19 Respiratory Rate 16 01/18/25 08:19 Blood Pressure 152/99 H 01/18/25 08:19 Pulse Oximetry 99 01/18/25 08:19 Temperature 36.8 C 01/18/25 08:19 Pulse Rate 89 01/18/25 08:19 Respiratory Rate 16 01/18/25 08:19 Blood Pressure 152/99 H 01/18/25 08:19 Pulse Oximetry 99 01/18/25 08:19 MDM MDM Narrative Medical decision making narrative: Treated patient with Toradol injection. Relief was minimal at time of discharge. Will send in muscle relaxers in hopes that helps reduce tension. If symptoms are not improving patient instructed to go to the emergency department. Patient is also going to call PCP on Monday to discuss going back on hypertensive medications. Pt well hydrated appearing, in no respiratory distress, hemodynamically stable. Recommend supportive care. The patient is stable at time of discharge the clinical impression was discussed and the patient was given the opportunity to ask questions, which were addressed as completely as possible given the information available at present. Anticipatory guidance and return to care precautions were discussed and the importance of primary care follow-up was stressed and encouraged. The patient voiced understanding of the plan, indicati ons to return, and the need for follow-up. Exam findings show no acute concerns or changes Patient is appropriate for outpatient treatment and follow-up. Differential Diagnosis Differential Diagnosis: Differential diagnostic considerations for headache include ?ICH, IC infx, migraine, tension MCCRACKEN, CVA/TIA, vasculitis/arteritis, cluster headache, dissection (carotid/vertebral), tumor/mass/abscess, thrombosis, meningitis, sinusitis, post-concussion syndrome. Medical Records I have reviewed the following patient records and this information was taken into consideration when formulating the assessment and plan.: previous clinic visits Discharge Plan Discharge Clinical Impression: Tension headache Patient Disposition: Home Condition: Stable Instructions: Tension Headache (ED) Additional Instructions: take muscle relaxers as needed, they may make you sleepy. Take Zofran as needed for nausea. For pain, you may take: Tylenol 650-1000mg by mouth every 4-6 hours. Do not exceed 4000mg in 24 hours. Advil (Ibuprofen) 600 mg by mouth every 6 hours. Do not exceed 2400mg in 24 hours. 8 AM: Tylenol 11 AM: Ibuprofen 2 PM: Tylenol 5 PM: Ibuprofen 8 PM: Tylenol 11 PM: Ibuprofen 2 AM: Tylenol 5 AM: Ibuprofen Follow-up with PCP as needed or if you have worsening headache, vision changes, dizziness my persistent vomiting go to the emergency department. Your blood pressure was elevated above 120/80 today at Urgent Care. This puts you above the threshold for follow up visit with a primary care provider. High blood pressure does not usually cause any symptoms, however it may lead to kidney failure, stroke, heart disease just to name a few if untreated . Many people are anxious when seeing a provider or nurse. As a result, you are not diagnosed with hypertension at this time unless your blood pressure is persistently high at two office visits at least one week apart. Some things that can help lower blood pressure are lifestyle modifications, such as light exercise, decreased salt in diet, and weight loss. It is important to follow up with a PCP about this within 1 week. Patient Language: Vietnamese Prescriptions: New baclofen 10 mg tablet 10 mg PO TID 5 Days Qty: 15 0RF No Action escitalopram oxalate 10 mg tablet 10 tablet PO DAILY norethindrone-e.estradiol-iron [Blisovi Fe 03/04 (28)] 1 mg-20 mcg (21)/75 mg (7) tablet PO DAILY Follow-up/Referrals: Brittney,Shawn Samayoa MD [Primary Care Provider, Unknown] - 3 Days Time of Disposition: 09:02
== END 2025-01-18 09:08 | disposition home or self-care (01) ==
PROVIDERS: Emergency Provider Nurse Practitioner Family; PCP Family Medicine
DX: G44.209 Tension-type headache, unspecified, not intractable (principal)
CPT/HCPCS: 96372; 99213; G0463; J1885

== ENCOUNTER 2025-01-18 21:37 | Emergency (ER) | payer BC, SELFPAY ==
--- OUTSIDE RECORDS SUMMARY | 2013-08-12 18:00 | XMS_ITS | Continuity of Care Document ---
Author Organization [facility] Address [address] [place] [address] Phone Care Team Providers Care Slusher Operator Name Role Phone Unavailable Unavailable Unavailable Advance Directives Directive Yes / No Effective Date File Name No Information Encounters Encounter Description Practice Location Reason(s) For Visit Diagnoses Date Provider Providers Copied on Encounter [facility], [address] [facility], [place], [place], [id number], tel:[phone] [facility] No Information No Information Referring Provider: OTILIA Sifuentes, [address], [place], [address]. tel:[phone] Family History Family Member Type Diagnosis Age At Onset No Information Payers Payer name Insurance type Covered republican ID Authoriza tisonal(s) [facility] [id number] CI [id number] Social History Type Description Quantity Date Captured Comments Sex Female Smoking Status No Information Chief Complaint And Reason For Visit No Information History Of Present Illness Encounter Date Complaint History Of Prese nt Illness No Information Instructions Date Instruction Additional Infor mation No Information Assessments Type Assessment Date No Information
--- NOTE | ~2025-01-18 | CT_ITS ---
EXAMINATION: CT brain wo con DATE: 01/18/2025 22:20 INDICATION: Headache. TECHNIQUE: Computed tomography (CT) of the head was performed without intravenous contrast. The mA was adjusted according to patient size. Iterative reconstruction technique was employed. The dose-length product was 605.33 mGy-cm. COMPARISON: Head CT 08/25/2024 FINDINGS: There is no intracranial hemorrhage, acute infarction, or abnormal intracranial mass lesion. The ventricles are normal in size. There is mild mucosal thickening in the paranasal sinuses. The orbits are normal. The mastoid air cells are normal. IMPRESSION: 1. Normal brain. Reviewed, dictated and finalized at location E. OR [employer] SPECIALIST IMPRESSION: 1. Normal brain.
[2025-01-18 21:37] VITALS: BP 196/111; PULSE 79; RESP 17; TEMP 36.4; O2SAT 97
--- NOTE | 2025-01-18 21:59 | ECG_ITS ---
Test Date: 2025-01-18 22:07:01 Measurements Intervals [place] Rate: 82 P: 58 ID: 145 QRS: 10 QRSD: 92 T: 9 QT: 372 QTc: 436 Interpretive Statements SINUS RHYTHM INCOMPLETE RIGHT BUNDLE BRANCH BLOCK LOW QRS VOLTAGE IN PRECORDIAL LEADS BORDERLINE T WAVE ABNORMALITY- ANT/INF LEADS BASELINE ARTIFACT- I, II, III, AVR, AVL, AVF, V1 BORDERLINE ECG No previous ECG available for comparison Electronically Signed On 01-19-2025 09:12:02 [employer] by Jose Robb D.O.
[2025-01-18] MEDS: MORPHINE SULFATE (*CRX) 4 MG/ML INJ IM (22:09)
--- NOTE | 2025-01-18 22:23 | ED.HA ---
HPI - Headache General Chief Complaint: Headache Stated Complaint: headache Time Seen by Provider: 01/18/25 21:47 Source: patient Mode of arrival: ambulatory Limitations: no limitations History of Present Illness HPI Narrative: This is a 40-year-old female with a headache with some frontal headache that is like a bandlike around her head with some some pressure with no drainage no fever chills no neck stiffness no chest pain or shortness of breath no nausea or vomiting. Patient does not have a history of high blood pressure but in the past was on atenolol for higher blood pressure but patient was taken off this medicine approximately 1 year ago. Currently there is no blurry vision no cough or congestion no shortness of breath no abdominal pain no dysuria no flank pain. MD elicited complaint: headache Pertinent past history: hypertension Onset (ago): day(s) Onset description: gradually Location: frontal Severity: moderate Pain scale (0-10): 6 Quality & Timing: squeezing and similar to previous headaches Exacerbating factors: movement of head/neck Relieving factors: nothing Context: occurred at rest Associated symptoms: none Related Data Home Medications ?Medication ?Instructions ?Recorded ?Confirmed ?Last Taken ?Type norethindrone 1 mg-ethinyl tablet PO DAILY 10/07/20 Unknown History estradiol 20 mcg (21)-iron 75 mg (7) tablet (Blisovi Fe 03/04 ()) escitalopram oxalate 10 mg tablet 10 tablet PO DAILY 08/01/21 08/01/21 Unknown History Allergies Allergy/AdvReac Type Severity Reaction Status Date / Time No Known Allergies Allergy Verified 01/18/25 22:03 Review of Systems Review of Systems: All systems reviewed & are unremarkable except as noted in HPI and below PMFSH Family History Family History Grandparent Diabetes mellitus Hypertension Malignant neoplasm of prostate Family history of coronary artery disease Mother Diabetes mellitus Father Hypertension Other Family history of cardiovascular disease Social History Social History Smoking status: Never smoker Alcohol intake: current Substance use: never Substance use type: does not use Lack of Transportation: No Lack of Food: Never True Current Housing: I Have Housing Concerned About Future Housing: No Difficulty Paying Gas/Electric Bills: No Difficulty Paying for Meds: No Currently Unemployed: No Education: Master's Degree or Higher Difficulty w/ Childcare or Family Care: No Exam Const: General: healthy appearing, no acute distress and alert Nutritional Appearance: well nourished Orientation/consciousness: patient oriented x3 Limitations: no limitations HENMT: Head: normal to inspection Other: Tympanic membranes dull to visualization with a frontal sinus pressure Eyes: Conjunctivae: conjunctivae normal Pupils: Equal, round and reactive pupils present EOM: EOMs intact bilaterally Neck: Neck: normal visual inspection Chest: Chest palpation & inspection: normal inspection of the chest Resp: Effort & Inspection: normal respiratory effort Auscultation: clear to auscultation bilaterally Cardio: Rate: regular rate Rhythm: regular rhythm GI: GI Palp: Yes Soft to palpation Auscultation: normal bowel sounds Back/Spine/Pelvis: Back: no CVA tenderness Neuro: General: patient oriented x3, moves all extremities, no meningeal signs and no focal motor deficits Extrem: General: normal to inspection, no clubbing, cyanosis or edema and no pedal edema Course Course Emergency Course: Medical decision making narrative Patient was evaluated by myself in the emergency department. History obtained from the patient was an independent historian physical exam performed witnessed by tech. Patient had an EKG that showed normal sinus rhythm. CT scan of the brain with no acute intracranial abnormalities. Patient received 4mg IM morphine for pain control and after reassessment pain level is improved. Blood pressure initially at 196/111 and patient was given 25mg metoprolol. Repeat assessment: Patient doing well on repeated exam acute distress distress Symptoms have improved since arrival to the emergency department. Vitals have improved, Patient agrees with the discussion after shared medical decision decision making and agrees with discharge All questions answered to the patient's satisfaction Advised follow-up with primary within the next 3 to 5 days. Patient provided with strict return precautions to return to ED if any worsening symptoms. Vital Signs Vital signs: Vital Signs Temperature 36.4 C L 01/18/25 21:37 Pulse Rate 79 01/18/25 21:37 Respiratory Rate 17 01/18/25 21:37 Blood Pressure 196/111 H 01/18/25 21:37 Pulse Oximetry 97 01/18/25 21:37 Oxygen Delivery Room Air 01/18/25 21:37 Temperature 36.4 C L 01/18/25 21:37 Pulse Rate 79 01/18/25 23:00 Respiratory Rate 18 01/18/25 23:00 Blood Pressure 167/97 H 01/18/25 23:00 Pulse Oximetry 95 01/18/25 23:00 Oxygen Delivery Room Air 01/18/25 23:00 MDM Differential Diagnosis Differential Diagnosis: Headache/hypertension Lab Data 01/18/25 22:29 Labs: Lab Results 01/18/25 Range/Units 22:29 Sodium 141 (137-145) mmol/L Potassium 3.8 (3.4-5.0) mmol/L Chloride 109 H (98-107) mmol/L Carbon Dioxide 22 (22-30) mmol/L Anion Gap 10 (4-12) mmol/L BUN 12 (7-17) mg/dL Creatinine 0.70 (0.7-1.0) mg/dL Estim Creat Clear Calc 96 ml/min Estimated GFR > 60 (59 - ) Glucose 92 (65-110) mg/dL Calculated Osmolality 291 (285-295) mOsm/kg Calcium 8.8 (8.4-10.2) mg/dL Total Bilirubin 0.4 (0.2-1.3) mg/dL AST 19 (14-36) U/L ALT 13 (6-35) U/L Alkaline Phosphatase 97 (38-126) U/L Total Protein 7.1 (6.3-8.2) g/dL Albumin 4.2 (3.5-5.1) g/dL Critical Care Time Critical Care Time Critical Care Time: No Discharge Plan Discharge Clinical Impression: Tension headache Headache Qualifiers: Headache type: tension-type Headache chronicity pattern: acute headache Intractability: not intractable Qualified Code(s): G44.209 - Tension-type headache, unspecified, not intractable Hypertension Qualifiers: Hypertension type: unspecified Qualified Code(s): I10 - Essential (primary) hypertension Patient Disposition: Home Condition: Stable Instructions: Antibiotic Form, Acute Headache (ED), Hypertension (ED) Additional Instructions: Advised patient to follow-up with primary care physician. Take medication as prescribed. Patient Language: [place] Islander Prescriptions: New metoprolol succinate 50 mg tablet extended release 24 hr 50 mg PO DAILY Qty: 20 0RF oxycodone-acetaminophen [Percocet] 5-325 mg tablet 1 tablet PO Q6H PRN (Reason: pain) Qty: 14 0RF No Action escitalopram oxalate 10 mg tablet 10 tablet PO DAILY norethindrone-e.estradiol-iron [Blisovi Fe 03/04 (28)] 1 mg-20 mcg (21)/75 mg (7) tablet PO DAILY baclofen 10 mg tablet 10 mg PO TID 5 Days Qty: 15 0RF Follow-up/Referrals: Brittney,Shawn Samayoa MD [Primary Care Provider, Unknown] Time of Disposition: 22:52
[2025-01-18 22:27] VITALS: PULSE 87
[2025-01-18] MEDS: METOPROLOL TARTRATE 25 MG TABLET PO ×2 (22:27→22:52)
[2025-01-18 22:30] VITALS: BP 172/92; PULSE 81; RESP 20; O2SAT 96
--- OUTSIDE RECORDS SUMMARY | 2025-01-18 22:36 | XMS_ITS | Clinical Summary ---
Author Organization [facility] elicit Address [address] [place] [address] Care Team Providers Care Florist Helper Name Role Phone Alexis Hopper MD Primary Care Provider Source Comments [facility],non-[facility] Affiliates and Associated Physician Practices is amultiple site organization consisting of ambulatory clinics and hospital sitesin [place], [place], [place] and [place]. This disclosure is being madepursuant to the Care Everywhere program and may not contain all information available regarding this patient. Last updated 17.[facility] elicit Allergies Active Allergy Reactions Criticality Noted Date [...] Comments Blood Pressure 118/76 01/25/2016 4:03 PM TALENT ACQUISITION ASSOCIATE Pulse 82 01/25/2016 4:03 PM TALENT ACQUISITION ASSOCIATE Temperature 37.3 C (99.1 F) 01/25/2016 4:03 PM TALENT ACQUISITION ASSOCIATE Respiratory Rate 16 01/25/2016 4:03 PM TALENT ACQUISITION ASSOCIATE Oxygen Saturation 98% 01/25/2016 4:03 PM TALENT ACQUISITION ASSOCIATE Inhaled Oxygen Concentration - - Weight 68 kg (150 lb) 01/25/2016 4:03 PM TALENT ACQUISITION ASSOCIATE Height 162.6 cm (5' 4) 01/25/2016 4:03 PM TALENT ACQUISITION ASSOCIATE Body Mass Index 25.75 01/25/2016 4:03 PM TALENT ACQUISITION ASSOCIATE Plan of Treatment Health Maintenance Due Date Last Done Comments LIPID TESTING 1984 MAMMOGRAM 1984 HIV SCREENING 01/17/1999 HEPATITIS C SCREENING 01/13/2002 DTAP/TDAP/TD VACCINES (1 - Tdap) 01/17/2003 HEPATITIS B VACCINE (1 of 3 - 19+ 3-dose series) 01/17/2003 PAP SMEAR 01/17/2005 HPV VACCINE (1 - 3-dose SCDM series) 01/17/2011 DEPRESSION SCREENING 02/14/2024 COVID-19 VACCINE (1 - 2024-2 6 season) 2024 INFLUENZA VACCINE (#1) 2024 ZOSTER [...] patient's age to complete this topic Insurance [facility] SELF PAY NO INSURANCE Member Subscriber Plan / Payer (Ef fective for All Dates) Name:Kwesi Gonzalez Member ID:Not on file Relation to Subscriber:Not on file Name:KWESI GONZALEZ Subscriber ID:Not on file (Home) Address: [address] [place] [address] Payer ID:Not on file Group ID:Not on file Type:Self Pay Address: [facility] AET Advance Directives * Full Code (Latest Code Status on File) Date Activated Date Inactivated Comments 08/15/2013 3:59 PM 08/19/2013 1:05 PM Care Teams Florist Helper Relationship Specialty Start Date End Date Alexis Hopper MD [address] [place] [phone] PCP - General Internal Medicine 08/15/13
--- OUTSIDE RECORDS SUMMARY | 2025-01-18 22:36 | XMS_ITS | Clinical Summary ---
Author Organization [facility] Address [address] [place] [address] Care Team Providers Care Insurance Underwriting Assistant Name Role Phone Shawn Lugo MD Primary Care Provider [phone] Kamala Gordon MD Unavailable Allergies Active Allergy Reactions Criticality Noted Date [...] 04/20/2018 Assessment & Plan (04/20/2018 10:12 AM PAPER SORTER): Lymphadenopathy verses cyst. 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 Hx Other Medical r foot fx, surg [...] Grandmother Natalia Ramírez Hypertension Maternal Grandmother Natalia Ballal Hypert ension; Diabetes Mother Lorrie Chambers Diabetes destiny itus; Other Mother Lorrie Chambers Alive and wel l; Colon cancer Paternal Grandfather Cancer, colon; Hypertension Paternal Grandmother Nati Winters Relation Name Status Comments Father Seven Chambers Alive Maternal Grandfather Oskar Ramírez Alive Maternal Grandmother Natalia Ramírez Alive Mother Lorrie Chambers Alive Paternal Grandfather Alive Paternal Grandmother Nati Chambers Alive Social History Tobacco Use Types [...] on file Legal Sex Female 12:40 PM PAPER SORTER Gender Identity Female 12/09/2020 8:32 PM CDT [...] Procedure Name Priority Date/Time Associated Diagnosis Comments POST PROCEDURE MAMMOGRAM Schedule Routine, Read Routine (OP Routine) 11/07/2024 3:18 PM CDT HM MAMMOGRAPHY Routine 10/23/2024 9:21 AM CDT HEPATITIS C ANTIBODY Routine 09/14/2023 8:34 AM CDT Need for hepatitis C screening test HM PAP SMEAR WITH HPV Routine 02/04/2020 from Last 3 Months or Most Recently Relevant to Health Maintenance Results * Post Procedure Mammogram (11/07/2024 3:18 PM CDT) Anatomical Region Laterality Modality Breast Mammography Historical Provider IMG MAMMO PROCEDURES Edith l Result * (ABNORMAL) MAMMOGRAPHY (10/23/2024 9:21 AM CDT) Mammography Abnormal Kamala Gordon MD HEALTH MAINTENANCE Final Result * Hepatitis C antibody Blood (09/14/2023 8:34 [...] MICROBIOLOGY - GENERAL ORDERABLES Final Result [facility] [address] Department [place] [address] * HM PAP SMEAR WITH HPV (02/04/2020) us Historical Provider MD HEALTH MAINTENANCE Final Result from Last 3 Months or Most Recently Relevant to Health Maintenance Insurance [facility] CHO[facility] PLUS [facility] CHO[facility] PLUS [facility] CHO[facility] PLUS Care Teams Insurance Underwriting Assistant Relationship Specialty Start Date End Date Shawn Lugo MD [address] [place] [address] PCP - General Family Medicine 12/10/20 Kamala Gordon MD [address] [place] [address] Referring Physician Gynecology 09/13/21
[2025-01-18 22:44] LABS: Alanine Aminotransferase 13 U/L (6-35); Albumin Level 4.2 g/dL (3.5-5.1); Alkaline Phosphatase 97 U/L (38-126); Anion Gap 10 mmol/L (4-12); Aspartate Amino Transferase 19 U/L (14-36); Bilirubin,Total 0.4 mg/dL (0.2-1.3); Blood Urea Nitrogen 12 mg/dL (7-17); Calcium 8.8 mg/dL (8.4-10.2); Carbon Dioxide 22 mmol/L (22-30); Chloride 109 mmol/L (98-107); Estimated CRCL calculation 96 ml/min; Estimated Glomerular Filt Rate > 60; Glucose 92 mg/dL (65-110); Osmolality Calculated 291 mOsm/kg (285-295); Potassium 3.8 mmol/L (3.4-5.0); Sodium 141 mmol/L (137-145); Total Protein 7.1 g/dL (6.3-8.2)
[2025-01-18 22:45] VITALS: BP 170/93
[2025-01-18 22:52] VITALS: PULSE 92
[2025-01-18 23:00] VITALS: BP 167/97; PULSE 79; RESP 18; O2SAT 95
== END 2025-01-18 23:06 | disposition home or self-care (01) ==
LOC: CHSED 22:35
PROVIDERS: Emergency Provider Emergency Medicine; PCP Family Medicine
DX: G44.209 Tension-type headache, unspecified, not intractable (principal)
CPT/HCPCS: 36415; 70450; 80053; 93005; 96372; 99284; A9270; J2270